=== PATIENT | female | born 1960 | race Caucasian/White ===

== ENCOUNTER → 2017-07-31 | Day surgery (SDC) | payer MEDICARE, MEDICAID ==
[~2017-07-31] MED LIST: Acetaminophen/HYDROcodone 325-5 MG Tab PO ONE; Dexamethasone 4 MG/ML SDV ONE; HYDROmorphone 0.5 MG/0.5 ML Syringe ONE; Ketorolac 30 MG/ML SDV ONE; Lactated Ringers 1,000 ML IV SCH; Lactated Ringers 1,000 ML ONE; Lidocaine 1% 4 ML ONE; Lidocaine 1%/Sod Bicarbonate in NS 8.4% 1 ML Syringe IDERM PRN; Meperidine PF 50 MG/ML Syringe IVPUSH PRN; Midazolam 1 MG/ML 2 ML SDV ONE; Ondansetron 4 MG/2 ML SDV IVPUSH PRN; Ondansetron 4 MG/2 ML SDV ONE; Propofol 200 MG/20 ML SDV ONE; Rocuronium 50 MG/5 ML Vial ONE; Sodium Chloride 0.9% 10 ML Syringe FLUSH PRN; ceFAZolin 1 GM Vial ONE; diphenhydrAMINE 50 MG/ML SDV IVPUSH PRN; fentaNYL 100 MCG/2 ML SDV IVPUSH PRN; fentaNYL 250 MCG/5 ML SDV ONE
--- NOTE | 2017-07-31 07:43 | PCM.PREANE ---
Preanesthetic Assessment - Anesthesia/Transfusion/Family Hx Anesthesia History: Prior Anesthesia Without Reaction Family History of Anesthesia Reaction: No Transfusion History: No Prior Transfusion(s) Intubation History: Unknown - Review of Systems General: Fatigue Pulmonary: No Symptoms (Former smoker: quit 2011, Asthma: last used inhaler daily/ERIKA with no CPAP used.) Cardiovascular: No Symptoms (History of HTN), Palpitations (occasionally) Gastrointestinal: No Symptoms (History of gastric bypass in 1998), Abdominal Pain, Decreased Appetite, Nausea (with dry heaves noted a few days ago.) Neurological: Headache, Numbness (bilateral hands while sleeping) Other: Reports: Easy Bruising, Diabetes (AM blood sugar: 99 AT 0500), Liver Problems (Spot on liver noted which doctor will continue to monitor), Sinus Problem (seasonal allergies/rhinitis) - Physical Assessment NPO Status Date: 07/30/17 NPO Status Time: 18:00 Pulse: 65 O2 Sat by Pulse Oximetry: 98 Respiratory Rate: 16 Blood Pressure: 160/56 Temperature: 36.9 C Height: 1.55 m Weight: 109 kg ASA Class: 3 Mental Status: Alert & Oriented x3 Airway Class: Mallampati = 3 Dentition: Reports: Dentures (upper and lower) Thyro-Mental Finger Breadths: 3 Mouth Opening Finger Breadths: 3 ROM/Head Extension: Full Lungs: Clear to Auscultation, Normal Respiratory Effort Cardiovascular: Regular Rate, Regular Rhythm, No Murmurs - Allergies Allergies/Adverse Reactions: Allergies Allergy/AdvReac Type Severity Reaction Status Date / Time codeine Allergy Rash Verified 07/30/17 15:25 - Anesthesia Plan Pre-Op Medication Ordered: None - Acknowledgements Anesthesia Type Planned: General Anesthesia Pt an Appropriate Candidate for the Planned Anesthesia: Yes Alternatives and Risks of Anesthesia Discussed w Pt/Guardian: Yes Pt/Guardian Understands and Agrees with Anesthesia Plan: Yes PreAnesthesia Questionnaire HEENT History: Reports: Impaired Vision, Other (See Below) Other HEENT History: wears glasses, dentures Cardiovascular History: Reports: High Cholesterol Respiratory History: Reports: Asthma, Sleep Apnea Gastrointestinal History: Reports: Other (See Below) Other Gastrointestinal History: liver lesion Genitourinary History: Reports: None POLITICAL CARTOONIST History: Reports: Other (See Below) Other OB/BYN History: abnormal pap Musculoskeletal History: Reports: None Neurological History: Reports: None Psychiatric History: Reports: Other (See Below) Other Psychiatric History: insomnia Endocrine/Metabolic History: Reports: Diabetes, Type II Hematologic History: Reports: None Immunologic History: Reports: None Oncologic (Cancer) History: Reports: None Dermatologic History: Reports: None - Past Surgical History Head Surgeries/Procedures: Reports: None Respiratory Surgical History: Reports: None GI Surgical History: Reports: Bariatric Procedure, Colonoscopy Female Surgical History: Reports: None Male Surgical History: Reports: None Endocrine Surgical History: Reports: None Neurological Surgical History: Reports: None Musculoskeletal Surgical History: Reports: None Oncologic Surgical History: Reports: None - SUBSTANCE USE Smoking Status *Q: Former Smoker Recreational Drug Use History: No - HOME MEDS Home Medications: Home Meds Albuterol [Ventolin HFA] 1 - 2 puff INH Q4H PRN 07/30/17 [History] Ascorbic Acid [Vitamin C] 500 mg PO DAILY 07/30/17 [History] Budesonide/Formoterol Fumarate [Symbicort 160-4.5 Mcg Inhaler] 2 puff INH BID [History] Calcium Carbonate [Calcium] 600 mg PO DAILY 07/30/17 [History] Cromolyn Sodium 1 drop EYEBOTH BID 07/30/17 [History] Cyanocobalamin (Vitamin B-12) [Vitamin B-12] 2,500 mcg PO DAILY 07/30/17 [ History] Cyclobenzaprine [Flexeril] 10 mg PO TID PRN 07/30/17 [History] Ferrous Gluconate [Iron] 0.5 tab PO DAILY 07/30/17 [History] Fluticasone Propionate [Flonase] 1 spray NASBOTH DAILY 07/30/17 [History] Furosemide [Lasix] 20 mg PO DAILY 07/30/17 [History] Garlic [Garlic Oil] 1,000 mg PO DAILY 07/30/17 [History] Loratadine [Claritin] 10 mg PO DAILY 07/30/17 [History] Montelukast [Singulair] 10 mg PO DAILY 07/30/17 [History] Multivitamin [Daily Bennie] 1 tab PO DAILY 07/30/17 [History] [place]-3/DHA/Epa/Fish Oil [Fish Oil 1,000 mg Softgel] 1 cap PO DAILY 07/30/17 [ History] Vitamin B Complex [B Complex] 1 tab PO DAILY 07/30/17 [History] Zolpidem Tartrate [Ambien] 5 mg PO BEDTIME 07/30/17 [History] atorvaSTATin [Lipitor] 20 mg PO BEDTIME 07/30/17 [History] sitaGLIPtin Phos/Metformin HCl [Janumet 50-1,000 MG] 1 tab PO BID 07/30/17 [ History] traZODone HCl [Trazodone HCl] 50 mg PO BEDTIME 07/30/17 [History] - CURRENT (IN HOUSE) MEDS Current Meds: Current Medications Lactated Ringer's (Ringers, Lactated) 1,000 mls @ 125 mls/hr IV ASDIRECTED [facility] Stop: 07/31/17 23:00 Lidocaine/Sodium Bicarbonate (Buffered Lidocaine 1% In Ns 8.4%) 0.25 ml IDERM ONETIME PRN PRN Reason: Prior to IV Start Stop: 07/31/17 18:00 Sodium Chloride (Saline Flush) 10 ml FLUSH ASDIRECTED PRN PRN Reason: Keep Vein Open Stop: 07/31/17 18:00 Discontinued Medications Lactated Ringer's (Ringers, Lactated) 1,000 mls @ 125 mls/hr IV ASDIRECTED [facility] Stop: 07/31/17 23:00 Lidocaine/Sodium Bicarbonate (Buffered Lidocaine 1% In Ns 8.4%) 0.25 ml IDERM ONETIME PRN PRN Reason: Prior to IV Start Stop: 07/31/17 18:00 Sodium Chloride (Saline Flush) 10 ml FLUSH ASDIRECTED PRN PRN Reason: Keep Vein Open Stop: 07/31/17 18:00
[2017-07-31] MEDS: Bupivacaine 0.5% 30 ML SDV ONE ×2 (09:59→10:12)
[2017-07-31] MEDS: Iopamidol 612 MG/ML 50 ML SDV ONE ×2 (10:13→11:00)
[2017-07-31] MEDS: Sodium Chloride 0.9% 50 ML SDV ONE ×2 (10:13→11:00)
--- NOTE | 2017-07-31 11:24 | PCM.OPNOTE ---
- General Post-Op/Procedure Note Date of Surgery/Procedure: 07/31/17 Operative Procedure(s): lap elias with IOC Pre Op Diagnosis: cholelithiasis Post-Op Diagnosis: Same Anesthesia Technique: General ET Tube Primary Surgeon: Deepak Abbott EBL in mLs: 2 Complications: None Condition: Good
--- NOTE | 2017-07-31 11:33 | PCM.POSTAN ---
POST ANESTHESIA ASSESSMENT - MENTAL STATUS Mental Status: Alert, Oriented - VITAL SIGNS Pulse Rate: 72 SaO2: 96 Resp Rate: 17 Blood Pressure: 132/44 Temperature: 36.8 C - RESPIRATORY Respiratory Status: Respiratory Rate WNL, Airway Patent, O2 Saturation Stable, Supplemental Oxygen - CARDIOVASCULAR CV Status: Pulse Rate WNL, Blood Pressure Stable - GASTROINTESTINAL GI Status: No Symptoms - PAIN Pain Score: 0 - POST OP HYDRATION Hydration Status: Adequate & Stable
--- NOTE | 2017-07-31 12:52 | CR ---
Operative cholangiogram Technique: Four fluoroscopic spot views were obtained during operative cholangiogram study. Comparison: No previous study. Very distal aspect of the CBD is not well seen but no indirect evidence to suggest obstruction is seen. Other portions the CHD and CBD as well as intrahepatic ducts show no dilatation. Impression: 1. Distal CBD not well seen. No indirect evidence of CBD obstruction, please correlate with fluoroscopic findings. 2. Other portions of the cholangiogram study are unremarkable. Diagnostic code #2
--- NOTE | 2017-08-01 06:50 | OR ---
DATE OF OPERATION: 07/31/2017 SURGEON: Deepak Abbott MD PREOPERATIVE DIAGNOSIS: Cholelithiasis. POSTOPERATIVE DIAGNOSIS: Cholelithiasis. OPERATION PERFORMED: 1. Laparoscopic cholecystectomy. 2. Intraoperative cholangiogram. FINDINGS: Adhesions of the omentum over the fundus of the gallbladder. The cholangiogram showed dilated ducts with a trickle of dye into the partial emptying of the duct into the duodenum. The gallbladder had a small little gravel like sludge. ANESTHESIA: Procedure done under general anesthetic. ESTIMATED BLOOD LOSS: 2 mL. DESCRIPTION OF PROCEDURE: The patient was taken to the operating room, placed in a supine position, connected to monitoring equipment, given a general anesthetic and intubated. SCDs were placed. Antibiotics were given and the abdomen was prepped with chlorhexidine and alcohol prep, draped off in a sterile fashion. Incision was made above the umbilicus and using the extended 5-mm trocar, the abdominal cavity was entered using an Opti port technique. Pneumoperitoneum was established and a 5-mm 0-degree camera was then inserted. Abdominal cavity was scanned/the liver did not show any unusual masses. Gallbladder was shown in the right upper quadrant with adhesions over the fundus. A 10-mm trocar was placed in the right upper quadrant, one in the right mid quadrant, and one in the right lateral quadrant just along the rib edge. The patient was placed in reverse Trendelenburg with a leftward tilt. The adhesions were taken down with electrocautery. The fundus of the gallbladder was then retracted and the Peg pouch was then identified after the adhesions were taken out and that was retracted in the opposite direction of the fundus that is in the caudal projection. Calot's triangle was then dissected out so a cystic artery ramifying onto the duct and cystic duct Peg pouch junction. A clip was placed in the cystic duct Peg pouch junction and 2 clips, one distal and proximal cystic artery and the cystic duct was opened. New gravel was milked out and a cholangiocatheter was inserted and contrast material diluted with equal parts of saline and the C-arm was used and the above noted was found. The clip was placed on the cystic duct. Cystic duct was cut and then a 0 PDS Endoloop was placed below this clip. The cystic artery was cut and the gallbladder was then dissected from its attachments to the liver and placed in an Endobag and removed from the abdominal cavity. A pneumoperitoneum was re- established. The area was checked and excellent hemostasis noted. This completed the intraabdominal portion of the procedure. The pneumoperitoneum was removed. Gallbladder was sent to pathology in a labeled container and the skin of each port closed with subdermal 4-0 Dexon suture. Steri-Strips and sterile dressing were placed and 0.5% Marcaine infiltrated in the area. The patient tolerated the procedure and sent to recovery room in a stable condition. MMODAL /[id number]
== END | disposition home or self-care (01) ==
LOC: JD.SDS 07:19
PROVIDERS: ATTEND Surgery
DX: K81.1 Chronic cholecystitis (principal); K82.8 Other specified diseases of gallbladder; I10 Essential (primary) hypertension; E11.9 Type 2 diabetes mellitus without complications; J45.909 Unspecified asthma, uncomplicated; E78.00 Pure hypercholesterolemia, unspecified; G47.30 Sleep apnea, unspecified; Z87.891 Personal history of nicotine dependence; Z79.51 Long term (current) use of inhaled steroids; Z79.84 Long term (current) use of oral hypoglycemic drugs; Z79.899 Other long term (current) drug therapy; Z88.5 Allergy status to narcotic agent
CPT/HCPCS: 36415; 47563; 74300; 80048; 93005; J0690; J1100; J1170; J1885; J2001; J2250; J2405; J3010; J7120; Q9967; 00790; 88304; J2704

== ENCOUNTER 2017-08-01 17:55 | Inpatient (IN) | payer MEDICARE, MEDICAID ==
[2017-08-01] MEDS ORDERED: Dextrose 5%-0.9% NaCl 1,000 ML IV SCH ×2 (18:00→18:45)
[2017-08-01] MEDS ORDERED: HYDROmorphone 0.5 MG/0.5 ML SYRINGE IVPUSH ONE (18:31)
[2017-08-01] MEDS ORDERED: Metoclopramide 10 MG/2 ML SDV IVPUSH ONE (18:31)
--- NOTE | 2017-08-01 18:37 | EDM.PDOC ---
ED HPI GENERAL MEDICAL PROBLEM - General Chief Complaint: Abdominal Pain Stated Complaint: FABIO SENT HER Time Seen by Provider: 08/01/17 18:22 Source of Information: Reports: Patient, Family (spouse) History Limitations: Reports: Other (Very tearful and apprehensive.) - History of Present Illness INITIAL COMMENTS - FREE TEXT/NARRATIVE: 57-year-old female presents to the ED with diffuse abdominal pain after having laparoscopic cholecystectomy performed yesterday in our hospital by Dr. Abbott. She is nauseated did have emesis once. She has had very little to eat or drink today. No bowel movement. She feels bloated and distended. It does hurt worse to take a deep breath particularly in her right upper quadrant of her abdomen and shoulder area. This would suggest air between the liver and the diaphragm. Hurts to move cough or breathes deeply. A very chills. On cholangiogram done yesterday intraoperatively it appeared that there was a dilatation of the common bile duct up to 1.5 cm with stenosis at the distal end of the duct suggesting partial occlusion. No definitive stone was identified or filling defect. Concern for possible occlusion of the duct by small stone or sludge evident. Onset: Gradual Onset Date: 07/31/17 (Had laparoscopic cholecystectomy done yesterday.) Duration: Hour(s): Location: Reports: Abdomen (Diffuse abdominal pain worse right upper quadrant.) Quality: Reports: Ache, Other Severity: Severe (2 pain is 8 or 9 out of 10.) Improves with: Reports: None Worsens with: Reports: Other, Movement Context: Reports: Other (Postop laparoscopic cholecystectomy done yesterday.). Denies: Activity (A breathing or coughing), Exercise, Lifting, Sick Contact, Trauma Associated Symptoms: Reports: Loss of Appetite, Malaise, Nausea/Vomiting, Shortness of Breath. Denies: Confusion, Chest Pain, Cough, cough w sputum, Diaphoresis, Fever/Chills, Headaches, Rash (Nausea with intermittent vomiting 1.), Seizure, Syncope Treatments DIRECTOR RECREATION: Reports: Other (see below) (None.) Abdomen Pain Score (Numeric/FACES): 9 - Related Data Allergies Allergy/AdvReac Type Severity Reaction Status Date / Time codeine Allergy Rash Verified 08/01/17 18:13 Home Meds: Home Meds Albuterol [Ventolin HFA] 1 - 2 puff INH Q4H PRN 05/21/18 [History] Ascorbic Acid [Vitamin C] 500 mg PO DAILY 07/30/17 [History] Budesonide/Formoterol Fumarate [Symbicort 160-4.5 Mcg Inhaler] 2 puff INH BID [History] Calcium Carbonate [Calcium] 600 mg PO DAILY 07/30/17 [History] Cromolyn Sodium 1 drop EYEBOTH BID 07/30/17 [History] Cyanocobalamin (Vitamin B-12) [Vitamin B-12] 2,500 mcg PO DAILY 07/30/17 [ History] Cyclobenzaprine [Flexeril] 10 mg PO TID PRN 07/30/17 [History] Ferrous Gluconate [Iron] 0.5 tab PO DAILY 07/30/17 [History] Fluticasone Propionate [Flonase] 1 spray NASBOTH DAILY 07/30/17 [History] Furosemide [Lasix] 20 mg PO DAILY 07/30/17 [History] Garlic [Garlic Oil] 1,000 mg PO DAILY 07/30/17 [History] Loratadine [Claritin] 10 mg PO DAILY 07/30/17 [History] Montelukast [Singulair] 10 mg PO DAILY 07/30/17 [History] Multivitamin [Daily Bennie] 1 tab PO DAILY 07/30/17 [History] [place]-3/DHA/Epa/Fish Oil [Fish Oil 1,000 mg Softgel] 1 cap PO DAILY 07/30/17 [ History] Vitamin B Complex [B Complex] 1 tab PO DAILY 07/30/17 [History] Zolpidem Tartrate [Ambien] 5 mg PO BEDTIME 07/30/17 [History] atorvaSTATin [Lipitor] 20 mg PO BEDTIME 07/30/17 [History] sitaGLIPtin Phos/Metformin HCl [Janumet 50-1,000 MG] 1 tab PO BID 07/30/17 [ History] traZODone HCl [Trazodone HCl] 50 mg PO BEDTIME 07/30/17 [History] Past Medical History HEENT History: Reports: Impaired Vision, Other (See Below) Other HEENT History: wears glasses, dentures Cardiovascular History: Reports: High Cholesterol Respiratory History: Reports: Asthma, Sleep Apnea Gastrointestinal History: Reports: Other (See Below) Other Gastrointestinal History: liver lesion Genitourinary History: Reports: None WAISTBAND SETTER History: Reports: Other (See Below) Other OB/BYN History: abnormal pap Musculoskeletal History: Reports: None Neurological History: Reports: None Psychiatric History: Reports: Other (See Below) Other Psychiatric History: insomnia Endocrine/Metabolic History: Reports: Diabetes, Type II Hematologic History: Reports: None Immunologic History: Reports: None Oncologic (Cancer) History: Reports: None Dermatologic History: Reports: None - Past Surgical History Head Surgeries/Procedures: Reports: None Respiratory Surgical History: Reports: None GI Surgical History: Reports: Bariatric Procedure, Colonoscopy, Other (See Below ) Other GI Surgeries/Procedures: bladder surgery Female Surgical History: Reports: None Endocrine Surgical History: Reports: None Neurological Surgical History: Reports: None Musculoskeletal Surgical History: Reports: None Oncologic Surgical History: Reports: None Social & Family History - Tobacco Use Smoking Status *Q: Former Smoker Used Tobacco, but Quit: Yes Month/Year Tobacco Last Used: 2011 - Caffeine Use Caffeine Use: Reports: Coffee - Recreational Drug Use Recreational Drug Use: No - Living Situation & Occupation Living situation: Reports: Single Occupation: Unemployed ED ROS GENERAL - Review of Systems Review Of Systems: See Below Constitutional: Reports: Malaise, Weakness, Fatigue, Decreased Appetite (From not sleeping last night). Denies: Fever, Chills HEENT: Reports: No Symptoms Respiratory: Reports: Shortness of Breath (Can take a deep breath it makes the abdominal pain much worse.) Cardiovascular: Reports: No Symptoms Endocrine: Reports: No Symptoms GI/Abdominal: Reports: Abdominal Pain (She is to present illness), Decreased Appetite (Unable to eat at all), Flatus (He is passing small amounts of flatus.) : Reports: No Symptoms Musculoskeletal: Reports: No Symptoms Skin: Reports: No Symptoms Neurological: Reports: No Symptoms ED EXAM, GI/ABD - Physical Exam Exam: See Below Exam Limited By: No Limitations General Appearance: Moderate Distress (Tearful and obviously in significant pain.) Eyes: Bilateral: Normal Appearance (No jaundice.) Throat/Mouth: Other (Tongue is dry and coated.) Head: Atraumatic, Normocephalic Neck: Normal Inspection, Supple, Non-Tender. No: Lymphadenopathy (L), Lymphadenopathy (R) Respiratory/Chest: Lungs Clear, Normal Breath Sounds, Respiratory Distress ( Mildly tachypneic at 20/m. Breathing is fairly shallow.), Decreased Breath Sounds (The case. Air entry to the lower 20% of lung milan.) Cardiovascular: No Edema, No JVD, No Murmur, No Rub, Irregularly Irregular ( Heart rate is irregularly irregular at 140-1 50/m compatible with atrial fibrillation. Patient is not on the monitor at present. She will be shortly) GI/Abdominal Exam: Normal Bowel Sounds, Distended, Tender (Patient has diffuse abdominal tenderness particularly across the lower abdomen right lower quadrant right upper quadrant. She is slightly distended and diffusely tympanitic to percussion.), Other (Surgical right upper quadrant of the abdomen looks good.) Back Exam: Normal Inspection, CVA Tenderness (R) (Mild.). No: CVA Tenderness (L ) Extremities: Normal Inspection, Normal Range of Motion, No Pedal Edema Neurological: Alert, Oriented, CN II-XII Intact, Normal Cognition Psychiatric: Anxious, Tearful Skin Exam: Warm, Intact, Normal Color, No Rash, Other (No jaundice.) EKG INTERPRETATION EKG Date: 08/01/17 Time: 18:53 Rhythm: A-Fib (With a rate of 86-1 50/m) Rate (Beats/Min): 112 [place]: LAD-Left [place] Deviation (Borderline left axis deviation at 1.) P-Wave: Absent QRS: Other (There is early R-wave transition in V2 suggestive of right ventricular hypertrophy pattern. Patient needs echocardiogram to rule out pulmonary hypertension. There is also evidence of left ventricular hypertrophy pattern with repolarization abnormality.) ST-T: Normal QT: Normal EKG Interpretation Comments: Abnormal ECG Course - Vital Signs Last Recorded V/S: Last Vital Signs Temp 37.2 C 08/01/17 18:07 Pulse 112 H 08/01/17 18:07 Resp 18 08/01/17 18:07 BP 147/86 H 08/01/17 18:07 Pulse Ox 98 08/01/17 18:07 - Orders/Labs/Meds Orders: Active Orders 24 hr Category Date Time Status EKG Documentation Completion [RC] STAT Care 08/01/17 18:30 Active Chest 1V Frontal [CR] Stat Exams 08/01/17 18:30 Taken Dextrose 5%-0.9% NaCl [Dextrose 5%-Normal Saline] 1,000 Med 08/01/17 18:45 Active ml IV ASDIRECTED Diltiazem 125 mg Med 08/01/17 19:15 Active Sodium Chloride 0.9% [Normal Saline] 100 ml IV ASDIRECTED Diltiazem 125 mg Med 08/01/17 19:45 Active Sodium Chloride 0.9% [Normal Saline] 100 ml IV ASDIRECTED Sodium Chloride 0.9% [Saline Flush] Med 08/01/17 18:41 Active 10 ml FLUSH ONETIME PRN Medication Orders Dextrose/Sodium Chloride (Dextrose 5%-Normal Saline) 1,000 mls @ 500 mls/hr IV ASDIRECTED ABRAN Diltiazem HCl 125 mg/ Sodium (Chloride) 125 mls @ 10 mls/hr IV ASDIRECTED ABRAN Diltiazem HCl 125 mg/ Sodium (Chloride) 125 mls @ 5 mls/hr IV ASDIRECTED ABRAN Last Admin: 08/01/17 19:57 Dose: 5 mg/hr, 5 mls/hr Sodium Chloride (Saline Flush) 10 ml FLUSH ONETIME PRN PRN Reason: IV FLUSH Last Admin: 08/01/17 19:05 Dose: 10 ml Labs: Laboratory Tests 08/01/17 08/01/17 08/01/17 Range/Units 18:20 18:20 18:20 WBC 17.46 H (3.98-10.04) K/mm3 RBC 4.28 (3.98-5.22) M/mm3 Hgb 12.0 (11.2-15.7) gm/L Hct 37.2 (34.1-44.9) % MCV 86.9 (79.4-94.8) fl MCH 28.0 (25.6-32.2) pg MCHC 32.3 (32.2-35.5) g/dl RDW Std Deviation 44.3 (36.4-46.3) fL Plt Count 275 (182-369) K/mm3 MPV 9.8 (9.4-12.3) fl Neutrophils % (Manual) 90 H (40-60) % Band Neutrophils % 0 (0-10) % Lymphocytes % (Manual) 8 L (20-40) % Atypical Lymphs % 0 % Monocytes % (Manual) 2 (2-10) % Eosinophils % (Manual) 0 L (0.7-5.8) % Basophils % (Manual) 0 L (0.1-1.2) Platelet Estimate Adequate Plt Morphology Comment Normal Poikilocytosis 1+ slight Anisocytosis 1+ slight Microcytosis 1+ slight Macrocytosis 1+ slight Tear Drop Cells 1+ slight Ovalocytes 1+ slight RBC Morph Comment Abn Sodium 137 (136-145) mEq/L Potassium 4.2 (3.5-5.1) mEq/L Chloride 101 (98-107) mEq/L Carbon Dioxide 28 (21-32) mEq/L Anion Gap 12.2 (5-15) BUN 18 (7-18) mg/dL Creatinine 1.0 (0.55-1.02) mg/dL Est Cr Clr Drug Dosing 47.40 mL/min Estimated GFR (MDRD) 57 (>60) mL/min BUN/Creatinine Ratio 18.0 (14-18) Glucose 156 H (74-106) mg/dL Calcium 9.4 (8.5-10.1) mg/dL Magnesium 1.8 (1.8-2.4) mg/dl Total Bilirubin 0.8 (0.2-1.0) mg/dL GGT 166 H (5-55) U/L AST 137 H (15-37) U/L ALT 169 H (14-59) U/L Alkaline Phosphatase 135 H (46-116) U/L CK-MB (CK-2) 5.7 H (0-3.6) ng/ml Troponin I < 0.017 (0.00-0.056) ng/mL NT-Pro-B Natriuret Pep (0-125) pg/mL Total Protein 7.2 (6.4-8.2) g/dl Albumin 3.8 (3.4-5.0) g/dl Globulin 3.4 gm/dL Albumin/Globulin Ratio 1.1 (1-2) Lipase 89 (73-393) U/L 08/01/17 Range/Units 18:20 WBC (3.98-10.04) K/mm3 RBC (3.98-5.22) M/mm3 Hgb (11.2-15.7) gm/L Hct (34.1-44.9) % MCV (79.4-94.8) fl MCH (25.6-32.2) pg MCHC (32.2-35.5) g/dl RDW Std Deviation (36.4-46.3) fL Plt Count (182-369) K/mm3 MPV (9.4-12.3) fl Neutrophils % (Manual) (40-60) % Band Neutrophils % (0-10) % Lymphocytes % (Manual) (20-40) % Atypical Lymphs % % Monocytes % (Manual) (2-10) % Eosinophils % (Manual) (0.7-5.8) % Basophils % (Manual) (0.1-1.2) Platelet Estimate Plt Morphology Comment Poikilocytosis Anisocytosis Microcytosis Macrocytosis Tear Drop Cells Ovalocytes RBC Morph Comment Sodium (136-145) mEq/L Potassium (3.5-5.1) mEq/L Chloride (98-107) mEq/L Carbon Dioxide (21-32) mEq/L Anion Gap (5-15) BUN (7-18) mg/dL Creatinine (0.55-1.02) mg/dL Est Cr Clr Drug Dosing mL/min Estimated GFR (MDRD) (>60) mL/min BUN/Creatinine Ratio (14-18) Glucose (74-106) mg/dL Calcium (8.5-10.1) mg/dL Magnesium (1.8-2.4) mg/dl Total Bilirubin (0.2-1.0) mg/dL GGT (5-55) U/L AST (15-37) U/L ALT (14-59) U/L Alkaline Phosphatase (46-116) U/L CK-MB (CK-2) (0-3.6) ng/ml Troponin I (0.00-0.056) ng/mL NT-Pro-B Natriuret Pep 201 H (0-125) pg/mL Total Protein (6.4-8.2) g/dl Albumin (3.4-5.0) g/dl Globulin gm/dL Albumin/Globulin Ratio (1-2) Lipase (73-393) U/L Meds: Medications Generic Name Dose Route Start Last Admin Trade Name Freq PRN Reason Stop Dose Admin Dextrose/Sodium Chloride 1,000 mls @ 500 mls/hr 08/01/17 18:45 Dextrose 5%-Normal Saline IV ASDIRECTED ABRAN Diltiazem HCl 125 mg/ Sodium 125 mls @ 10 mls/hr 08/01/17 19:15 Chloride IV ASDIRECTED ABRAN 10 MG/HR Diltiazem HCl 125 mg/ Sodium 125 mls @ 5 mls/hr 08/01/17 19:45 08/01/17 19:57 Chloride IV 5 mg/hr ASDIRECTED ABRAN 5 mls/hr Administration 5 MG/HR Sodium Chloride 10 ml 08/01/17 18:41 08/01/17 19:05 Saline Flush FLUSH 10 ml ONETIME PRN Administration IV FLUSH Discontinued Medications Generic Name Dose Route Start Last Admin Trade Name Freq PRN Reason Stop Dose Admin Diltiazem HCl 10 mg 08/01/17 19:04 08/01/17 19:20 Diltiazem IVPUSH 08/01/17 19:05 10 mg ONETIME ONE Administration Hydromorphone HCl 1 mg 08/01/17 18:31 08/01/17 18:38 Dilaudid IVPUSH 08/01/17 18:32 1 mg ONETIME ONE Administration Dextrose/Sodium Chloride 1,000 mls @ 150 mls/hr 08/01/17 18:00 08/01/17 18:37 Dextrose 5%-Normal Saline IV 150 mls/hr ASDIRECTED ABRAN Administration Cefotaxime Sodium 2 gm/ Sodium 50 mls @ 100 mls/hr 08/01/17 19:37 Chloride IV 08/01/17 20:06 ONETIME ONE Iopamidol 150 ml 08/01/17 18:41 08/01/17 19:05 Isovue-300 (61%) IVPUSH 08/01/17 18:42 125 ml ONETIME ONE Administration Metoclopramide HCl 7.5 mg 08/01/17 18:31 08/01/17 18:37 Reglan IVPUSH 08/01/17 18:32 7.5 mg ONETIME ONE Administration - Radiology Interpretation Free Text/Narrative:: 57-year-old female arrives in the ED with with her significant other. She had a laparoscopic cholecystectomy done yesterday in our hospital by Dr. Abbott. She presents to the ED tonight due to diffuse severe abdominal pain. Dr. Abbott did an intraoperative cholangiogram which suggested that she did have a dilated common bile duct with a narrowing at the distal end of the duct suspicious for stone retention or sludge. No definitive filling defect was identified. Duct appear to be dilated up to 1.5 cm. Therefore the concern is whether pain is due to stone or sludge within the common bile duct or postoperative in origin. Plan IV normal saline at 500 mils per hour. Dilaudid 1 mg IV with Reglan 7.5 mg IV as most narcotics make her nauseated. Routine lab work including a serum lipase and a GGT. ET of the abdomen and pelvis will be done with IV contrast only. Dr. Abbott wishes to be called once the test results are available. - Re-Assessments/Exams Free Text/Narrative Re-Assessment/Exam: 08/01/17 19:06 chest x-ray done portably shows a very poor inspirational view. This compresses the vasculature making look like she has diffuse vascular congestion. There is a slight haziness of the right hemidiaphragm suggesting possible early pleural effusion. ECG done confirms clinical suspicion of atrial fibrillation with a rate of 86-1 50/m. There are no signs of ischemic changes. She also has signs of a right ventricular hypertrophy with a left ventricular hypertrophy with repolarization abnormality as well. Patient needs an echocardiogram to sort out whether she has significant pulmonary hypertension. Will be started on Cardizem drip 10 mg IV bolus then 10 mg per hour to bring her rate under control. Be transferred to Dr. Sourav Arauz at change of shift. She is still awaiting her lab work and CT abdomen and pelvis with IV contrast. 08/01/17 19:25 Labs reveal an elevated white count at 17.46 with a left shift of 90% neutrophils and no bands. Hemoglobin is 12.0 with hematocrit of 37.2..Platelet count is normal at 275,000.. Sodium is 137 with a potassium of 4.2. Toward 101 with a bicarbonate 28. And a gap is normal at 12.2. BUN is 18 with a creatinine of 1.0. EGFR is 57. Glucose slightly elevated 156. Calcium normal at 9.4. Magnesium low normal at 1.8. Total bilirubin is 0.8 GGT is mildly elevated at 166 AST is mildly elevated 137 ALT is mildly elevated 169 alkaline phosphatase is mildly elevated 135. CK-MB fraction is elevated at 5.749 is less than 0.017. BNP is 201. Lipase normal at 89. Awaiting CT report. There is slight atelectasis noted within both lung bases. Liver shows no focal parenchymal abnormality or dilatation of any of the ducts. Spleen shows multiple calcified granulomas. This of previous stomach surgery is appreciated. On my assessment there is increased air in slight amount of stool throughout the colon. There is evidence of recent cholecystectomy. Common bile duct is dilated does come to a tapered distal and without any signs of obstruction. Increase is mildly atrophic. Kidneys and drainage tubes or ureters are normal. Adrenal glands appear normal. Bladder fills adequately. Heart rate is down to 92 /m remains in atrial fibrillation. BP is 127/95. 08/01/17 19:32 CT report is now available. There is a small low density finding within the right kidney which appears to contain fat and likely represents a minimal and she'll mild lipoma. Aorta shows no aneurysmal dilatation wrote no retroperitoneal adenopathy is seen. No pelvic mass or adenopathy is noted. Soft tissue air is seen within the anterior abdominal wall fat presumably from previous surgery no free fluid is appreciated no significant bowel dilatation is appreciated bone window setting show scattered degenerative changes throughout the spine was within the thoracic spine with evidence of a compression fracture of thoracic 11 vertebra. Case discussed with Dr. Hdz was already seen her once in the ED and he will revisit her in the morning. He suggests a dose of cefotaxime antibiotic for now since she has an elevated white count and wants to make sure she is not developing any form of sepsis or infection or common bile duct. 08/01/17 19:42 heart rate is down in the 90s and this is only after the Cardizem 10 mg IV bolus. She is to be started on Cardizem drip at 10 but I changed it to 5 mg per hour at this time since right is so well controlled after the bolus. 08/01/17 20:13 spoke with occupational therapist assistant hospitalist Dr. Flores and he will accept the patient. She will be admitted to the ICU as she is on Cardizem drip. Current rate is 1 10/m with BP of 122/73. Departure - Departure Time of Disposition: 20:08 Disposition: Admitted As Inpatient 67 Condition: Fair Clinical Impression: Postoperative abdominal pain, New onset atrial fibrillation - Discharge Information Referrals: Eva Morrison, DISTRICT DIRECTOR [Primary Care Provider] - Forms: ED Department Discharge - My Orders Last 24 Hours: My Active Orders 08/01/17 18:30 EKG Documentation Completion [RC] STAT Chest 1V Frontal [CR] Stat 08/01/17 18:41 Sodium Chloride 0.9% [Saline Flush] 10 ml FLUSH ONETIME PRN 08/01/17 18:45 Dextrose 5%-0.9% NaCl [Dextrose 5%-Normal Saline] 1,000 ml IV ASDIRECTED 08/01/17 19:15 Diltiazem 125 mg Sodium Chloride 0.9% [Normal Saline] 100 ml IV ASDIRECTED 08/01/17 19:45 Diltiazem 125 mg Sodium Chloride 0.9% [Normal Saline] 100 ml IV ASDIRECTED - Assessment/Plan Last 24 Hours: My Active Orders 08/01/17 18:30 EKG Documentation Completion [RC] STAT Chest 1V Frontal [CR] Stat 08/01/17 18:41 Sodium Chloride 0.9% [Saline Flush] 10 ml FLUSH ONETIME PRN 08/01/17 18:45 Dextrose 5%-0.9% NaCl [Dextrose 5%-Normal Saline] 1,000 ml IV ASDIRECTED 08/01/17 19:15 Diltiazem 125 mg Sodium Chloride 0.9% [Normal Saline] 100 ml IV ASDIRECTED 08/01/17 19:45 Diltiazem 125 mg Sodium Chloride 0.9% [Normal Saline] 100 ml IV ASDIRECTED
[2017-08-01] MEDS ORDERED: Sodium Chloride 0.9% 10 ML Syringe FLUSH PRN ×2 (18:41→21:19)
[2017-08-01] MEDS ORDERED: Iopamidol 612 MG/ML 150 ML Bottle IVPUSH ONE (18:41)
[2017-08-01] MEDS ORDERED: Diltiazem 25 MG/5 ML SDV IVPUSH ONE (19:04)
[2017-08-01] MEDS ORDERED: Diltiazem 125 MG in Sodium Chloride 0.9% 100 ML IV SCH ×2 (19:15→19:45)
--- NOTE | 2017-08-01 19:30 | CT ---
CT abdomen and pelvis Technique: Multiple axial sections were obtained from above the dome of the diaphragm inferiorly through the pubic symphysis. Intravenous contrast was utilized. No oral contrast has been given. Delayed images were also obtained through the abdomen and pelvis. Comparison: No previous CT abdomen or pelvis study. Findings: Slight atelectasis is noted within both lung bases. Liver shows no focal parenchymal abnormality. Spleen shows multiple calcified granulomas. Prior stomach surgery is seen. Surgical clips are seen from prior cholecystectomy. Slight increased density within the gallbladder bed is seen presumably due to prior surgery. Adrenal glands show no nodule. 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 Delayed images shows contrast within the ureters and within the bladder. Pancreas is within normal limits. Aorta shows no aneurysmal dilatation. No retroperitoneal adenopathy is seen. No pelvic mass or adenopathy is noted. Soft tissue air is seen within the anterior abdominal wall fat presumably from previous surgery. No free fluid is seen. No significant bowel dilatation is seen. Bone window settings show scattered degenerative change throughout the spine, worse within the thoracic spine. Bladder is slightly distended. Impression: 1. Slight increased density within the gallbladder bed which is felt to relate to previous surgery. Subcutaneous air is seen within the abdominal wall fat also felt to be postsurgical. 2. Slightly distended bladder, please confirm that patient does not have any urinary retention. 3. Other incidental findings as noted above. Nothing acute is seen. Diagnostic code #2
[2017-08-01] MEDS ORDERED: Cefotaxime 2 GM in Sodium Chloride 0.9% 50 ML IV ONE (19:37)
[2017-08-01] MEDS ORDERED: hydrALAZINE 20 MG/ML SDV IVPUSH PRN (21:16)
[2017-08-01] MEDS ORDERED: LORazepam 2 MG/ML SDV IVPUSH PRN (21:16)
[2017-08-01] MEDS ORDERED: Metoprolol Tartrate 5 MG/5 ML SDV IVPUSH PRN (21:16)
[2017-08-01] MEDS ORDERED: Cyclobenzaprine 10 MG Tab PO PRN (21:17)
[2017-08-01] MEDS ORDERED: Albuterol 6.7 GM Inhaler INH PRN (21:17)
[2017-08-01] MEDS ORDERED: Docusate Sodium 100 MG Cap PO PRN (21:19)
[2017-08-01] MEDS ORDERED: LORazepam 2 MG/ML SDV IV PRN (21:19)
[2017-08-01] MEDS ORDERED: Acetaminophen 325 MG Tab PO PRN (21:19)
[2017-08-01] MEDS ORDERED: Bisacodyl 5 MG Tab PO PRN (21:19)
[2017-08-01] MEDS ORDERED: Ondansetron 4 MG/2 ML SDV IV PRN (21:19)
[2017-08-01] MEDS ORDERED: HYDROmorphone 0.5 MG/0.5 ML SYRINGE IVPUSH PRN (21:19)
[2017-08-01] MEDS ORDERED: Promethazine 12.5 MG in Sodium Chloride 0.9% 50 ML IV PRN (21:19)
[2017-08-01] MEDS ORDERED: Polyethylene Glycol 3350 Powder 17 GM Packet PO PRN (21:19)
--- NOTE | 2017-08-01 21:25 | PCM.HP ---
H&P History of Present Illness - General Date of Service: 08/01/17 Admit Problem/Dx: Admission Diagnosis/Problem Admission Diagnosis/Problem Atrial fibrillation with rapid ventricular response Source of Information: Patient, Old Records, Provider, RN Notes Reviewed History Limitations: Reports: No Limitations - History of Present Illness Initial Comments - Free Text/Narative: This is a 57 yo white female with past medical hx/o impaired vision, hyperlipidemia, asthma, type 2 diabetes, and insomnia, presented to emergency department w/ abdominal pain after undergoing laparoscopic cholecystectomy POD # 1 and was found with irregular and fast heart rate in the 150s. She received 10 mg Cardizem IV bolus and was immediately put on Cardizem drip before she was sent to the unit for further management. Her initial workup in the emergency department shows CBC remarkable for WBC of 17.46, neutrophils of 90%,and lymphocytes of 8%. Her chemistry is remarkable for glucose of 156, GGT of 166, AST of 137, Alkaline phosphatase of 135, CKMB of 5.7 and, pro-BNP of 201. Chest x-ray shows slight left basilar atelectasis. Her abdominal/pelvis CT scan report reads slight increased density within the gallbladder bed which is felt to be related to previous surgery. Subcutaneous air is seen within the abdominal wall fat also found to be postsurgical. Slightly distended bladder. Nothing acute is seen. Patient is being admitted for medical management of atrial fibrillation with RVR. She is full code. Abdomen Pain Score (Numeric/FACES): 9 - Related Data Allergies/Adverse Reactions: Allergies Allergy/AdvReac Type Severity Reaction Status Date / Time codeine Allergy Rash Verified 08/01/17 18:13 Home Medications: Home Meds Albuterol [Ventolin HFA] 1 - 2 puff INH Q4H PRN 07/30/17 [History] Ascorbic Acid [Vitamin C] 500 mg PO DAILY 07/30/17 [History] Budesonide/Formoterol Fumarate [Symbicort 160-4.5 Mcg Inhaler] 2 puff INH BID [History] Calcium Carbonate [Calcium] 600 mg PO DAILY 07/30/17 [History] Cromolyn Sodium 1 drop EYEBOTH BID 07/30/17 [History] Cyanocobalamin (Vitamin B-12) [Vitamin B-12] 2,500 mcg PO DAILY 07/30/17 [ History] Cyclobenzaprine [Flexeril] 10 mg PO TID PRN 07/30/17 [History] Fluticasone Propionate [Flonase] 1 spray NASBOTH DAILY 07/30/17 [History] Furosemide [Lasix] 20 mg PO DAILY 07/30/17 [History] Garlic [Garlic Oil] 1,000 mg PO DAILY 07/30/17 [History] Loratadine [Claritin] 10 mg PO DAILY 07/30/17 [History] Montelukast [Singulair] 10 mg PO DAILY 07/30/17 [History] Multivitamin [Daily Bennie] 1 tab PO DAILY 07/30/17 [History] [place]-3/DHA/Epa/Fish Oil [Fish Oil 1,000 mg Softgel] 1 cap PO DAILY 07/30/17 [ History] Vitamin B Complex [B Complex] 1 tab PO DAILY 07/30/17 [History] Zolpidem Tartrate [Ambien] 5 mg PO BEDTIME 07/30/17 [History] atorvaSTATin [Lipitor] 20 mg PO BEDTIME 07/30/17 [History] sitaGLIPtin Phos/Metformin HCl [Janumet 50-1,000 MG] 1 tab PO BID 07/30/17 [ History] traZODone HCl [Trazodone HCl] 50 mg PO BEDTIME 07/30/17 [History] Ferrous Sulfate 162.5 mg PO DAILY 08/02/17 [History] Rivaroxaban [Xarelto] 20 mg PO ASDIRECTED #30 tablet 08/02/17 [Rx] Past Medical History HEENT History: Reports: Impaired Vision, Other (See Below) Other HEENT History: wears glasses, dentures Cardiovascular History: Reports: High Cholesterol Respiratory History: Reports: Asthma, Sleep Apnea Gastrointestinal History: Reports: Other (See Below) Other Gastrointestinal History: liver lesion Genitourinary History: Reports: None AUT[employer]EMMER History: Reports: Other (See Below) Other OB/BYN History: abnormal pap Musculoskeletal History: Reports: None Neurological History: Reports: None Psychiatric History: Reports: Other (See Below) Other Psychiatric History: insomnia Endocrine/Metabolic History: Reports: Diabetes, Type II Hematologic History: Reports: None Immunologic History: Reports: None Oncologic (Cancer) History: Reports: None Dermatologic History: Reports: None - Past Surgical History Head Surgeries/Procedures: Reports: None Respiratory Surgical History: Reports: None GI Surgical History: Reports: Bariatric Procedure, Colonoscopy, Other (See Below ) Other GI Surgeries/Procedures: bladder surgery Female Surgical History: Reports: None Endocrine Surgical History: Reports: None Neurological Surgical History: Reports: None Musculoskeletal Surgical History: Reports: None Oncologic Surgical History: Reports: None Social & Family History - Tobacco Use Smoking Status *Q: Former Smoker Used Tobacco, but Quit: Yes Month/Year Tobacco Last Used: 2011 - Caffeine Use Caffeine Use: Reports: Coffee - Recreational Drug Use Recreational Drug Use: No - Living Situation & Occupation Living situation: Reports: Single Occupation: Unemployed H&P Review of Systems - Review of Systems: Review Of Systems: See Below General: Reports: Malaise, Weakness, Fatigue. Denies: Fever, Chills HEENT: Reports: No Symptoms Pulmonary: Reports: Shortness of Breath Cardiovascular: Denies: Chest Pain, Palpitations, Dyspnea on Exertion, Lightheadedness Gastrointestinal: Reports: Abdominal Pain, Decreased Appetite, Flatus. Denies: Difficulty Swallowing, Nausea, Vomiting Genitourinary: Reports: No Symptoms Musculoskeletal: Reports: No Symptoms Skin: Denies: Cyanosis, Pallor, Diaphoresis, Erythema Psychiatric: Denies: Confusion, Depression, Mood Lability, Anxiety, Agitation, Hallucinations Neurological: Denies: Difficulty Walking, Weakness, Gait Disturbance Hematologic/Lymphatic: Reports: No Symptoms Immunologic: Reports: No Symptoms Exam - Exam Exam: See Below - Vital Signs Vital Signs: Last Vital Signs Temp 37.2 C 08/01/17 18:07 Pulse 112 H 08/01/17 18:07 Resp 18 08/01/17 18:07 BP 147/86 H 08/01/17 18:07 Pulse Ox 98 08/01/17 18:07 Weight: 111.901 kg - Exam General: Alert, Oriented, Cooperative. No: Mild Distress HEENT: Conjunctiva Clear, EACs Clear, EOMI, Hearing Intact, Mucosa Moist & Sedillo , Nares Patent, Normal Nasal Septum, Posterior Pharynx Clear, Pupils Equal, Pupils Reactive, TMs Clear, Other (w/o teeth) Neck: Supple, Trachea Midline, +2 Carotid Pulse wo Bruit Lungs: Clear to Auscultation, Normal Respiratory Effort Cardiovascular: Irregular Rhythm, Other (irregular) GI/Abdominal Exam: Normal Bowel Sounds, Soft, Distended, Tender, Abnormal Bowel Sounds, Other (surgical dressing ). No: Guarding, Rigid, Rebound (Female) Exam: Deferred Rectal (Female) Exam: Deferred Back Exam: Normal Inspection Extremities: Normal Inspection, Normal Range of Motion, Non-Tender, No Pedal Edema, Normal Capillary Refill Peripheral Pulses: 3+: Posterior Tibial (L), Posterior Tibial (R), Dorsalis Pedis (L), Dorsalis Pedis (R) Skin: Warm, Dry, Intact Neuro Extensive - Mental Status: Oriented x3, Normal Cognition, Memory Intact Neuro Extensive - Motor, Sensory, Reflexes: CN II-XII Intact (limited but grossly intact), Normal Gait Psychiatric: Alert, Normal Affect, Normal Mood - Patient Data Lab Results Last 24 hrs: Laboratory Results - last 24 hr 08/01/17 08/01/17 08/01/17 Range/Units 18:20 18:20 18:20 WBC 17.46 H (3.98-10.04) K/mm3 RBC 4.28 (3.98-5.22) M/mm3 Hgb 12.0 (11.2-15.7) gm/L Hct 37.2 (34.1-44.9) % MCV 86.9 (79.4-94.8) fl MCH 28.0 (25.6-32.2) pg MCHC 32.3 (32.2-35.5) g/dl RDW Std Deviation 44.3 (36.4-46.3) fL Plt Count 275 (182-369) K/mm3 MPV 9.8 (9.4-12.3) fl Neutrophils % (Manual) 90 H (40-60) % Band Neutrophils % 0 (0-10) % Lymphocytes % (Manual) 8 L (20-40) % Atypical Lymphs % 0 % Monocytes % (Manual) 2 (2-10) % Eosinophils % (Manual) 0 L (0.7-5.8) % Basophils % (Manual) 0 L (0.1-1.2) Platelet Estimate Adequate Plt Morphology Comment Normal Poikilocytosis 1+ slight Anisocytosis 1+ slight Microcytosis 1+ slight Macrocytosis 1+ slight Tear Drop Cells 1+ slight Ovalocytes 1+ slight RBC Morph Comment Abn Sodium 137 (136-145) mEq/L Potassium 4.2 (3.5-5.1) mEq/L Chloride 101 (98-107) mEq/L Carbon Dioxide 28 (21-32) mEq/L Anion Gap 12.2 (5-15) BUN 18 (7-18) mg/dL Creatinine 1.0 (0.55-1.02) mg/dL Est Cr Clr Drug Dosing 47.40 mL/min Estimated GFR (MDRD) 57 (>60) mL/min BUN/Creatinine Ratio 18.0 (14-18) Glucose 156 H (74-106) mg/dL Calcium 9.4 (8.5-10.1) mg/dL Magnesium 1.8 (1.8-2.4) mg/dl Total Bilirubin 0.8 (0.2-1.0) mg/dL GGT 166 H (5-55) U/L AST 137 H (15-37) U/L ALT 169 H (14-59) U/L Alkaline Phosphatase 135 H (46-116) U/L CK-MB (CK-2) 5.7 H (0-3.6) ng/ml Troponin I < 0.017 (0.00-0.056) ng/mL NT-Pro-B Natriuret Pep (0-125) pg/mL Total Protein 7.2 (6.4-8.2) g/dl Albumin 3.8 (3.4-5.0) g/dl Globulin 3.4 gm/dL Albumin/Globulin Ratio 1.1 (1-2) Lipase 89 (73-393) U/L 08/01/17 Range/Units 18:20 WBC (3.98-10.04) K/mm3 RBC (3.98-5.22) M/mm3 Hgb (11.2-15.7) gm/L Hct (34.1-44.9) % MCV (79.4-94.8) fl MCH (25.6-32.2) pg MCHC (32.2-35.5) g/dl RDW Std Deviation (36.4-46.3) fL Plt Count (182-369) K/mm3 MPV (9.4-12.3) fl Neutrophils % (Manual) (40-60) % Band Neutrophils % (0-10) % Lymphocytes % (Manual) (20-40) % Atypical Lymphs % % Monocytes % (Manual) (2-10) % Eosinophils % (Manual) (0.7-5.8) % Basophils % (Manual) (0.1-1.2) Platelet Estimate Plt Morphology Comment Poikilocytosis Anisocytosis Microcytosis Macrocytosis Tear Drop Cells Ovalocytes RBC Morph Comment Sodium (136-145) mEq/L Potassium (3.5-5.1) mEq/L Chloride (98-107) mEq/L Carbon Dioxide (21-32) mEq/L Anion Gap (5-15) BUN (7-18) mg/dL Creatinine (0.55-1.02) mg/dL Est Cr Clr Drug Dosing mL/min Estimated GFR (MDRD) (>60) mL/min BUN/Creatinine Ratio (14-18) Glucose (74-106) mg/dL Calcium (8.5-10.1) mg/dL Magnesium (1.8-2.4) mg/dl Total Bilirubin (0.2-1.0) mg/dL GGT (5-55) U/L AST (15-37) U/L ALT (14-59) U/L Alkaline Phosphatase (46-116) U/L CK-MB (CK-2) (0-3.6) ng/ml Troponin I (0.00-0.056) ng/mL NT-Pro-B Natriuret Pep 201 H (0-125) pg/mL Total Protein (6.4-8.2) g/dl Albumin (3.4-5.0) g/dl Globulin gm/dL Albumin/Globulin Ratio (1-2) Lipase (73-393) U/L Result Diagrams: 08/02/17 05:30 08/02/17 05:30 EKG INTERPRETATION EKG Date: 08/01/17 Time: 06:53 Rhythm: A-Fib Rate (Beats/Min): 112 Problem List Initiated/Reviewed/Updated: Yes Orders Last 24hrs: Active Orders 24 hr Category Date Time Status Admission Status [Patient Status] [ADT] Routine ADT 08/01/17 20:09 Active Cardiac Monitoring [RC] CONTINUOUS Care 08/01/17 21:19 Ordered Height and Weight [RC] DAILY Care 08/01/17 21:19 Ordered Intake and Output [RC] QSHIFT Care 08/01/17 21:19 Ordered Oxygen Therapy [RC] PRN Care 05/23/18 21:19 Ordered Up With Assistance [RC] ASDIRECTED Care 08/01/17 21:19 Ordered Up ad Michelle [RC] ASDIRECTED Care 08/01/17 21:19 Ordered VTE/DVT Education [RC] PER UNIT ROUTINE Care 08/01/17 21:19 Ordered Vital Signs [RC] Q4H Care 08/01/17 21:19 Ordered Consult to Case Management [CONS] Routine Cons 08/01/17 21:19 Ordered Consult to [employer] [CONS] Routine Cons 08/01/17 21:19 Ordered Regular Diet [DIET] Diet 08/01/17 Dinner Ordered Chest 1V Frontal [CR] Stat Exams 08/01/17 18:30 Taken Echo Comp wo Cont [US] Routine Exams 08/02/17 07:00 Ordered BASIC METABOLIC PANEL,BMP [CHEM] AM Lab 08/02/17 05:11 Ordered CBC WITH AUTO DIFF [HEME] AM Lab 08/02/17 05:11 Ordered MAGNESIUM [CHEM] AM Lab 08/02/17 05:11 Ordered T4 FREE [CHEM] Stat Lab 08/01/17 21:22 Ordered TSH [CHEM] Stat Lab 08/01/17 21:22 Ordered Acetaminophen [Tylenol] Med 08/01/17 21:19 Ordered 650 mg PO Q4H PRN Acetaminophen/HYDROcodone [[place] 325-5 MG] Med 08/01/17 21:19 Ordered 1 tab PO Q4H PRN Albuterol Med 08/01/17 21:17 Ordered 1 - 2 puff INH Q4H PRN Ascorbic Acid [Vitamin C] Med 08/02/17 09:00 Ordered 500 mg PO DAILY Bisacodyl [Dulcolax] Med 08/01/17 21:19 Ordered 5 mg PO DAILY PRN Budesonide/Formoterol Fumarate [Symbicort 160-4.5 Mcg Med 08/02/17 09:00 Ordered Inhaler] 2 puff INH BID Calcium Carbonate Med 08/02/17 09:00 Ordered 600 mg PO DAILY Cromolyn Sodium [Cromolyn Sodium] Med 08/02/17 09:00 Ordered 1 drop EYEBOTH BID Cyanocobalamin (Vitamin B-12) [Vitamin B-12] Med 08/02/17 09:00 Ordered 2,500 mcg PO DAILY Cyclobenzaprine [Flexeril] Med 08/01/17 21:17 Ordered 10 mg PO TID PRN Diltiazem 125 mg Med 08/01/17 19:45 Active Sodium Chloride 0.9% [Normal Saline] 100 ml IV ASDIRECTED Diltiazem [Cardizem CD] Med 08/02/17 09:00 Ordered 180 mg PO DAILY Docusate Sodium [Colace] Med 08/01/17 21:19 Ordered 100 mg PO BID PRN Docusate Sodium/Sennosides [Senna Plus] Med 08/01/17 21:19 Ordered 1 tab PO BID PRN Ferrous Gluconate [Iron] Med 08/02/17 09:00 Ordered 0.5 tab PO DAILY Fluticasone Propionate Med 08/02/17 09:00 Ordered 1 spray NASBOTH DAILY Furosemide [Lasix] Med 08/02/17 09:00 Ordered 20 mg PO DAILY Garlic [Garlic Oil] Med 08/02/17 09:00 Ordered 1,000 mg PO DAILY HYDROmorphone [Dilaudid] Med 08/01/17 21:19 Ordered 0.5 mg IVPUSH Q2H PRN LORazepam [Ativan] Med 08/01/17 21:19 Ordered 1 mg IV Q6H PRN LORazepam [Ativan] Med 08/01/17 21:16 Ordered 2 mg IVPUSH Q4H PRN Loratadine [Claritin] Med 08/02/17 09:00 Ordered 10 mg PO DAILY Magnesium Rep Pharmacy to Dose [Pharmacy to Dose - Med 08/01/17 21:30 Ordered Magnesium Replacement] 1 dose .XX ASDIRECTED Metoprolol Tartrate [Lopressor] Med 08/01/17 21:16 Ordered 5 mg IVPUSH Q4H PRN Montelukast [Singulair] Med 08/02/17 09:00 Ordered 10 mg PO DAILY Multivitamin Med 08/02/17 09:00 Ordered 1 tab PO DAILY [place]-3/DHA/Epa/Fish Oil [Fish Oil 1,000 mg Softgel] Med 08/02/17 09:00 Ordered 1 cap PO DAILY Ondansetron [Zofran] Med 08/01/17 21:19 Ordered 4 mg IV Q6H PRN Pantoprazole [ProTONIX IV] Med 08/02/17 09:00 Ordered 40 mg IV Q12HR Polyethylene Glycol 3350 [MiraLAX] Med 08/01/17 21:19 Ordered 17 gm PO DAILY PRN Potassium Rep Pharmacy to Dose [Pharmacy to Dose - Med 08/01/17 21:30 Ordered Potassium Replacement] 1 dose .XX ASDIRECTED Promethazine [Phenergan] 12.5 mg Med 08/01/17 21:19 Ordered Sodium Chloride 0.9% [Normal Saline] 50 ml IV Q6H Sodium Chloride 0.9% [Saline Flush] Med 08/01/17 21:19 Ordered 10 ml FLUSH ASDIRECTED PRN Sodium Chloride 0.9% [Saline Flush] Med 08/01/17 18:41 Active 10 ml FLUSH ONETIME PRN Vitamin B Complex Med 08/02/17 09:00 Ordered 1 tab PO DAILY Zolpidem [Ambien] Med 08/02/17 21:00 Ordered 5 mg PO BEDTIME atorvaSTATin Med 08/02/17 21:00 Ordered 20 mg PO BEDTIME hydrALAZINE [Apresoline] Med 08/01/17 21:16 Ordered 20 mg IVPUSH Q4H PRN sitaGLIPtin Phos/Metformin HCl [Janumet 50-1,000 MG] Med 08/02/17 09:00 Ordered 1 tab PO BID traZODone Med 08/02/17 21:00 Ordered 50 mg PO BEDTIME Saline Lock Insert [OM.PC] Routine Oth 08/01/17 21:19 Ordered Resuscitation Status Routine Resus Stat 08/01/17 21:19 Ordered Medication Orders Acetaminophen (Tylenol) 650 mg PO Q4H PRN PRN Reason: Pain (Mild 1-3)/fever Hydrocodone Bitart/Acetaminophen ([place] 325-5 Mg) 1 tab PO Q4H PRN PRN Reason: Pain (moderate 4-6) Ascorbic Acid (Vitamin C) 500 mg PO DAILY [facility] Bisacodyl (Dulcolax) 5 mg PO DAILY PRN PRN Reason: Constipation Calcium Carbonate/Glycine (Calcium Carbonate) 600 mg PO DAILY [facility] Cyclobenzaprine HCl (Flexeril) 10 mg PO TID PRN PRN Reason: muscle spasms Docusate Sodium (Colace) 100 mg PO BID PRN PRN Reason: Constipation Furosemide (Lasix) 20 mg PO DAILY [facility] Hydralazine HCl (Apresoline) 20 mg IVPUSH Q4H PRN PRN Reason: Hypertension Hydromorphone HCl (Dilaudid) 0.5 mg IVPUSH Q2H PRN PRN Reason: Pain (severe 7-10) Diltiazem HCl 125 mg/ Sodium (Chloride) 125 mls @ 5 mls/hr IV ASDIRECTED [facility] Last Admin: 08/01/17 19:57 Dose: 5 mg/hr, 5 mls/hr Promethazine HCl 12.5 mg/ (Sodium Chloride) 50.5 mls @ 100 mls/hr IV Q6H PRN PRN Reason: Nausea/Vomiting Lorazepam (Ativan) 2 mg IVPUSH Q4H PRN PRN Reason: Seizures Lorazepam (Ativan) 1 mg IV Q6H PRN PRN Reason: Anxiety Magnesium Sulfate (Pharmacy To Dose - Magnesium Replacement) 1 dose .XX ASDIRECTED [facility] Metoprolol Tartrate (Lopressor) 5 mg IVPUSH Q4H PRN PRN Reason: Tachycardia Montelukast Sodium (Singulair) 10 mg PO DAILY [facility] Non-Formulary Medication (Albuterol) 1 - 2 puff INH Q4H PRN PRN Reason: asthma Non-Formulary Medication (Atorvastatin) 20 mg PO BEDTIME [facility] Non-Formulary Medication (Budesonide/Formoterol Fumarate [Symbicort 160-4.5 Mcg Inhaler]) 2 puff INH BID [facility] Non-Formulary Medication (Cromolyn Sodium [Cromolyn Sodium]) 1 drop EYEBOTH BID [facility] Non-Formulary Medication (Cyanocobalamin (Vitamin B-12) [Vitamin B-12]) 2,500 mcg PO DAILY [facility] Non-Formulary Medication (Ferrous Gluconate [Iron]) 0.5 tab PO DAILY [facility] Non-Formulary Medication (Fluticasone Propionate) 1 spray NASBOTH DAILY [facility] Non-Formulary Medication (Garlic [Garlic Oil]) 1,000 mg PO DAILY [facility] Non-Formulary Medication (Loratadine [Claritin]) 10 mg PO DAILY [facility] Non-Formulary Medication (Multivitamin) 1 tab PO DAILY [facility] Non-Formulary Medication ([place]-3/Dha/Epa/Fish Oil [Fish Oil 1,000 Mg Softgel]) 1 cap PO DAILY [facility] Non-Formulary Medication (Sitagliptin Phos/Metformin Hcl [Janumet 50-1,000 Mg]) 1 tab PO BID [facility] Non-Formulary Medication (Vitamin B Complex) 1 tab PO DAILY [facility] Ondansetron HCl (Zofran) 4 mg IV Q6H PRN PRN Reason: Nausea/Vomiting Pantoprazole Sodium (Protonix Iv) 40 mg IV Q12HR [facility] Polyethylene Glycol (Miralax) 17 gm PO DAILY PRN PRN Reason: Constipation Potassium Chloride (Pharmacy To Dose - Potassium Replacement) 1 dose .XX ASDIRECTED [facility] Senna/Docusate Sodium (Senna Plus) 1 tab PO BID PRN PRN Reason: Constipation Sodium Chloride (Saline Flush) 10 ml FLUSH ONETIME PRN PRN Reason: IV FLUSH Last Admin: 08/01/17 19:05 Dose: 10 ml Sodium Chloride (Saline Flush) 10 ml FLUSH ASDIRECTED PRN PRN Reason: Keep Vein Open Trazodone HCl (Trazodone) 50 mg PO BEDTIME [facility] Zolpidem Tartrate (Ambien) 5 mg PO BEDTIME [facility] Assessment/Plan Comment:: Assessment/Plan: Acute: Atrial Fibrillation with RVR - HR in the 150s - Likely 2/2 Stress - Thyroid Panel-normal - Cardizem drip-titrate to keep HR < 100 - [id number] score 3:Moderate-High Risk Of Stroke - Lovenox 1mg/kg BID then start warfarin in AM; pharmacy to dose - CM to check for insurance eligibility with xarelto or eliquis in AM Abdominal Pain S/p Lap Cholecystectomy - Defer to Dr. Abbott - Received Iv Abx in ED - PRN pain medication Metabolic Syndrome Screening Chronic: Impaired vision Hyperlipidemia Asthma Type 2 diabetes Insomnia Obesity with BMI 46 Plan: Admit to ICU Resume Home Meds Routine AM Labs Dietary consult for weight management and warfarin diet not eligible for NOACs A1C, Lipid panel, TFT in AM Accu-check in AM per patient PT/OT consult IS as directed SW/CM for d/c planning Code status:1
[2017-08-01] MEDS ORDERED: Zolpidem 5 MG Tab PO ONE (21:40)
[2017-08-01] MEDS ORDERED: traZODone 50 MG Tab PO ONE (21:40)
[2017-08-01] MEDS ORDERED: Simvastatin 20 MG Tab PO ONE (22:00)
[2017-08-01] MEDS ORDERED: Magnesium Sulfate/Water 50 ML IV ONE (22:00)
[2017-08-01] MEDS: Acetaminophen/HYDROcodone 325-5 MG Tab PO PRN (22:10)
[2017-08-01] MEDS ORDERED: Enoxaparin 60 MG/0.6 ML Syringe SUBCUT ONE (22:30)
[2017-08-01] MEDS: Formoterol/Mometasone 200-5 MCG 8.8 GM Inhaler IH SCH (22:38)
--- NOTE | 2017-08-02 06:51 | PCM.PN ---
- General Info Date of Service: 08/02/17 Admission Dx/Problem (Free Text): Admission Diagnosis/Problem Admission Diagnosis/Problem Atrial fibrillation with rapid ventricular response Subjective Update: Follow Up Functional Status: Reports: Tolerating Diet, Ambulating, Urinating, Incentive Spirometry. Denies: Pain Controlled, New Symptoms Pain Score: 7 - Review of Systems General: Denies: Fever, Weakness, Fatigue, Malaise, Chills HEENT: Reports: No Symptoms Pulmonary: Denies: Shortness of Breath, Pleuritic Chest Pain, Cough Cardiovascular: Denies: Chest Pain, Palpitations, Dyspnea on Exertion, Lightheadedness Gastrointestinal: Denies: Abdominal Pain, Nausea, Vomiting Genitourinary: Reports: No Symptoms Musculoskeletal: Reports: No Symptoms Skin: Denies: Cyanosis, Mottled, Pallor, Diaphoresis, Rash Neurological: Denies: Confusion, Difficulty Walking, Weakness, Gait Disturbance Psychiatric: Denies: Depression, Anxiety, Agitation, Hallucinations Systems Review Comment:: No significant overnight or acute issues. She feels good this AM. She finally converted to sinus rhythm. Her pain is not controlled. Her WBC is down to 15.80 and she is afebrile. She looks comfortable in bed. - Patient Data Vitals - Most Recent: Last Vital Signs Temp 36.9 C 08/01/17 21:19 Pulse 112 H 08/01/17 18:07 Resp 20 08/02/17 04:00 BP 121/81 08/02/17 06:00 Pulse Ox 93 L 08/02/17 04:00 Weight - Most Recent: 66.134 kg I&O - Last 24 Hours: Intake & Output 08/01/17 08/01/17 08/02/17 14:59 22:59 06:59 Intake Total 591 Output Total 400 850 Balance -400 -259 Lab Results Last 24 Hours: Laboratory Results - last 24 hr 08/01/17 08/01/17 08/01/17 Range/Units 18:20 18:20 18:20 WBC 17.46 H (3.98-10.04) K/mm3 RBC 4.28 (3.98-5.22) M/mm3 Hgb 12.0 (11.2-15.7) gm/L Hct 37.2 (34.1-44.9) % MCV 86.9 (79.4-94.8) fl MCH 28.0 (25.6-32.2) pg MCHC 32.3 (32.2-35.5) g/dl RDW Std Deviation 44.3 (36.4-46.3) fL Plt Count 275 (182-369) K/mm3 MPV 9.8 (9.4-12.3) fl Neut % (Auto) (34.0-71.1) % Lymph % (Auto) (19.3-51.7) % [place] % (Auto) (4.7-12.5) % Eos % (Auto) (0.7-5.8) Baso % (Auto) (0.1-1.2) % Neut # (Auto) (1.56-6.13) K/mm3 Lymph # (Auto) (1.18-3.74) K/mm3 [place] # (Auto) (0.24-0.36) K/mm3 Eos # (Auto) (0.04-0.36) K/mm3 Baso # (Auto) (0.01-0.08) K/mm3 Neutrophils % (Manual) 90 H (40-60) % Band Neutrophils % 0 (0-10) % Lymphocytes % (Manual) 8 L (20-40) % Atypical Lymphs % 0 % Monocytes % (Manual) 2 (2-10) % Eosinophils % (Manual) 0 L (0.7-5.8) % Basophils % (Manual) 0 L (0.1-1.2) Platelet Estimate Adequate Plt Morphology Comment Normal Poikilocytosis 1+ slight Anisocytosis 1+ slight Microcytosis 1+ slight Macrocytosis 1+ slight Tear Drop Cells 1+ slight Ovalocytes 1+ slight RBC Morph Comment Abn PT (9.5-12.1) SECONDS INR Sodium 137 (136-145) mEq/L Potassium 4.2 (3.5-5.1) mEq/L Chloride 101 (98-107) mEq/L Carbon Dioxide 28 (21-32) mEq/L Anion Gap 12.2 (5-15) BUN 18 (7-18) mg/dL Creatinine 1.0 (0.55-1.02) mg/dL Est Cr Clr Drug Dosing 47.40 mL/min Estimated GFR (MDRD) 57 (>60) mL/min BUN/Creatinine Ratio 18.0 (14-18) Glucose 156 H (74-106) mg/dL POC Glucose (70-105) mg/dL Calcium 9.4 (8.5-10.1) mg/dL Magnesium 1.8 (1.8-2.4) mg/dl Total Bilirubin 0.8 (0.2-1.0) mg/dL GGT 166 H (5-55) U/L AST 137 H (15-37) U/L ALT 169 H (14-59) U/L Alkaline Phosphatase 135 H (46-116) U/L CK-MB (CK-2) 5.7 H (0-3.6) ng/ml Troponin I < 0.017 (0.00-0.056) ng/mL NT-Pro-B Natriuret Pep (0-125) pg/mL Total Protein 7.2 (6.4-8.2) g/dl Albumin 3.8 (3.4-5.0) g/dl Globulin 3.4 gm/dL Albumin/Globulin Ratio 1.1 (1-2) Triglycerides (<150) mg/dL Cholesterol (<200) mg/dL LDL Cholesterol Direct (<100) mg/dL HDL Cholesterol (40-59) mg/dL Lipase 89 (73-393) U/L Free T4 (0.76-1.46) ng/dL TSH 3rd Generation (0.358-3.74) uIU/mL Ur Random Microalbumin (1.3-20.0) mg/L 08/01/17 08/01/17 08/01/17 Range/Units 18:20 18:20 22:27 WBC (3.98-10.04) K/mm3 RBC (3.98-5.22) M/mm3 Hgb (11.2-15.7) gm/L Hct (34.1-44.9) % MCV (79.4-94.8) fl MCH (25.6-32.2) pg MCHC (32.2-35.5) g/dl RDW Std Deviation (36.4-46.3) fL Plt Count (182-369) K/mm3 MPV (9.4-12.3) fl Neut % (Auto) (34.0-71.1) % Lymph % (Auto) (19.3-51.7) % [place] % (Auto) (4.7-12.5) % Eos % (Auto) (0.7-5.8) Baso % (Auto) (0.1-1.2) % Neut # (Auto) (1.56-6.13) K/mm3 Lymph # (Auto) (1.18-3.74) K/mm3 [place] # (Auto) (0.24-0.36) K/mm3 Eos # (Auto) (0.04-0.36) K/mm3 Baso # (Auto) (0.01-0.08) K/mm3 Neutrophils % (Manual) (40-60) % Band Neutrophils % (0-10) % Lymphocytes % (Manual) (20-40) % Atypical Lymphs % % Monocytes % (Manual) (2-10) % Eosinophils % (Manual) (0.7-5.8) % Basophils % (Manual) (0.1-1.2) Platelet Estimate Plt Morphology Comment Poikilocytosis Anisocytosis Microcytosis Macrocytosis Tear Drop Cells Ovalocytes RBC Morph Comment PT (9.5-12.1) SECONDS INR Sodium (136-145) mEq/L Potassium (3.5-5.1) mEq/L Chloride (98-107) mEq/L Carbon Dioxide (21-32) mEq/L Anion Gap (5-15) BUN (7-18) mg/dL Creatinine (0.55-1.02) mg/dL Est Cr Clr Drug Dosing mL/min Estimated GFR (MDRD) (>60) mL/min BUN/Creatinine Ratio (14-18) Glucose (74-106) mg/dL POC Glucose 189 H (70-105) mg/dL Calcium (8.5-10.1) mg/dL Magnesium (1.8-2.4) mg/dl Total Bilirubin (0.2-1.0) mg/dL GGT (5-55) U/L AST (15-37) U/L ALT (14-59) U/L Alkaline Phosphatase (46-116) U/L CK-MB (CK-2) (0-3.6) ng/ml Troponin I (0.00-0.056) ng/mL NT-Pro-B Natriuret Pep 201 H (0-125) pg/mL Total Protein (6.4-8.2) g/dl Albumin (3.4-5.0) g/dl Globulin gm/dL Albumin/Globulin Ratio (1-2) Triglycerides (<150) mg/dL Cholesterol (<200) mg/dL LDL Cholesterol Direct (<100) mg/dL HDL Cholesterol (40-59) mg/dL Lipase (73-393) U/L Free T4 2.07 H (0.76-1.46) ng/dL TSH 3rd Generation 1.346 (0.358-3.74) uIU/mL Ur Random Microalbumin (1.3-20.0) mg/L 08/01/17 08/02/17 08/02/17 Range/Units 22:35 02:30 05:30 WBC 15.80 H (3.98-10.04) K/mm3 RBC 3.94 L (3.98-5.22) M/mm3 Hgb 11.0 L (11.2-15.7) gm/L Hct 34.7 (34.1-44.9) % MCV 88.1 (79.4-94.8) fl MCH 27.9 (25.6-32.2) pg MCHC 31.7 L (32.2-35.5) g/dl RDW Std Deviation 44.6 (36.4-46.3) fL Plt Count 243 (182-369) K/mm3 MPV 10.1 (9.4-12.3) fl Neut % (Auto) 86.7 H (34.0-71.1) % Lymph % (Auto) 6.1 L (19.3-51.7) % [place] % (Auto) 6.6 (4.7-12.5) % Eos % (Auto) 0.3 L (0.7-5.8) Baso % (Auto) 0.1 (0.1-1.2) % Neut # (Auto) 13.71 H (1.56-6.13) K/mm3 Lymph # (Auto) 0.96 L (1.18-3.74) K/mm3 [place] # (Auto) 1.05 H (0.24-0.36) K/mm3 Eos # (Auto) 0.04 (0.04-0.36) K/mm3 Baso # (Auto) 0.01 (0.01-0.08) K/mm3 Neutrophils % (Manual) (40-60) % Band Neutrophils % (0-10) % Lymphocytes % (Manual) (20-40) % Atypical Lymphs % % Monocytes % (Manual) (2-10) % Eosinophils % (Manual) (0.7-5.8) % Basophils % (Manual) (0.1-1.2) Platelet Estimate Plt Morphology Comment Poikilocytosis Anisocytosis Microcytosis Macrocytosis Tear Drop Cells Ovalocytes RBC Morph Comment PT 12.1 (9.5-12.1) SECONDS INR 1.11 Sodium (136-145) mEq/L Potassium (3.5-5.1) mEq/L Chloride (98-107) mEq/L Carbon Dioxide (21-32) mEq/L Anion Gap (5-15) BUN (7-18) mg/dL Creatinine (0.55-1.02) mg/dL Est Cr Clr Drug Dosing mL/min Estimated GFR (MDRD) (>60) mL/min BUN/Creatinine Ratio (14-18) Glucose (74-106) mg/dL POC Glucose (70-105) mg/dL Calcium (8.5-10.1) mg/dL Magnesium (1.8-2.4) mg/dl Total Bilirubin (0.2-1.0) mg/dL GGT (5-55) U/L AST (15-37) U/L ALT (14-59) U/L Alkaline Phosphatase (46-116) U/L CK-MB (CK-2) (0-3.6) ng/ml Troponin I (0.00-0.056) ng/mL NT-Pro-B Natriuret Pep (0-125) pg/mL Total Protein (6.4-8.2) g/dl Albumin (3.4-5.0) g/dl Globulin gm/dL Albumin/Globulin Ratio (1-2) Triglycerides (<150) mg/dL Cholesterol (<200) mg/dL LDL Cholesterol Direct (<100) mg/dL HDL Cholesterol (40-59) mg/dL Lipase (73-393) U/L Free T4 (0.76-1.46) ng/dL TSH 3rd Generation (0.358-3.74) uIU/mL Ur Random Microalbumin 11.2 (1.3-20.0) mg/L 08/02/17 08/02/17 Range/Units 05:30 05:30 WBC (3.98-10.04) K/mm3 RBC (3.98-5.22) M/mm3 Hgb (11.2-15.7) gm/L Hct (34.1-44.9) % MCV (79.4-94.8) fl MCH (25.6-32.2) pg MCHC (32.2-35.5) g/dl RDW Std Deviation (36.4-46.3) fL Plt Count (182-369) K/mm3 MPV (9.4-12.3) fl Neut % (Auto) (34.0-71.1) % Lymph % (Auto) (19.3-51.7) % [place] % (Auto) (4.7-12.5) % Eos % (Auto) (0.7-5.8) Baso % (Auto) (0.1-1.2) % Neut # (Auto) (1.56-6.13) K/mm3 Lymph # (Auto) (1.18-3.74) K/mm3 [place] # (Auto) (0.24-0.36) K/mm3 Eos # (Auto) (0.04-0.36) K/mm3 Baso # (Auto) (0.01-0.08) K/mm3 Neutrophils % (Manual) (40-60) % Band Neutrophils % (0-10) % Lymphocytes % (Manual) (20-40) % Atypical Lymphs % % Monocytes % (Manual) (2-10) % Eosinophils % (Manual) (0.7-5.8) % Basophils % (Manual) (0.1-1.2) Platelet Estimate Plt Morphology Comment Poikilocytosis Anisocytosis Microcytosis Macrocytosis Tear Drop Cells Ovalocytes RBC Morph Comment PT (9.5-12.1) SECONDS INR Sodium 136 (136-145) mEq/L Potassium 4.3 (3.5-5.1) mEq/L Chloride 102 (98-107) mEq/L Carbon Dioxide 28 (21-32) mEq/L Anion Gap 10.3 (5-15) BUN 16 (7-18) mg/dL Creatinine 1.0 (0.55-1.02) mg/dL Est Cr Clr Drug Dosing 47.40 mL/min Estimated GFR (MDRD) 57 (>60) mL/min BUN/Creatinine Ratio 16.0 (14-18) Glucose 149 H (74-106) mg/dL POC Glucose 178 H (70-105) mg/dL Calcium 8.8 (8.5-10.1) mg/dL Magnesium 2.2 (1.8-2.4) mg/dl Total Bilirubin (0.2-1.0) mg/dL GGT (5-55) U/L AST (15-37) U/L ALT (14-59) U/L Alkaline Phosphatase (46-116) U/L CK-MB (CK-2) (0-3.6) ng/ml Troponin I (0.00-0.056) ng/mL NT-Pro-B Natriuret Pep (0-125) pg/mL Total Protein (6.4-8.2) g/dl Albumin (3.4-5.0) g/dl Globulin gm/dL Albumin/Globulin Ratio (1-2) Triglycerides 43 (<150) mg/dL Cholesterol 111 (<200) mg/dL LDL Cholesterol Direct 41 (<100) mg/dL HDL Cholesterol 58.0 (40-59) mg/dL Lipase (73-393) U/L Free T4 (0.76-1.46) ng/dL TSH 3rd Generation (0.358-3.74) uIU/mL Ur Random Microalbumin (1.3-20.0) mg/L Med Orders - Current: Current Medications Acetaminophen (Tylenol) 650 mg PO Q4H PRN PRN Reason: Pain (Mild 1-3)/fever Hydrocodone Bitart/Acetaminophen ([place] 325-5 Mg) 1 tab PO Q4H PRN PRN Reason: Pain (moderate 4-6) Last Admin: 08/01/17 22:10 Dose: 1 tab Albuterol (Proventil Hfa) 1 - 2 gm INH Q4H PRN PRN Reason: asthma Alogliptin Benzoate (Alogliptin) 12.5 mg PO BID [facility] Ascorbic Acid (Vitamin C) 500 mg PO DAILY [facility] Bisacodyl (Dulcolax) 5 mg PO DAILY PRN PRN Reason: Constipation Calcium Carbonate/Glycine (Calcium Carbonate) 600 mg PO DAILY [facility] Cyanocobalamin (Vitamin B12) 2,500 mcg PO DAILY [facility] Cyclobenzaprine HCl (Flexeril) 10 mg PO TID PRN PRN Reason: muscle spasms Diltiazem HCl (Cardizem Cd) 180 mg PO DAILY [facility] Docusate Sodium (Colace) 100 mg PO BID PRN PRN Reason: Constipation Enoxaparin Sodium (Lovenox) 120 mg SUBCUT Q12H [facility] Fish Oil (Fish Oil) 1 gm PO DAILY [facility] Flunisolide (Nasalide Nasal [place]) 0 ml NASBOTH Q12H [facility] Furosemide (Lasix) 20 mg PO DAILY [facility] Hydralazine HCl (Apresoline) 20 mg IVPUSH Q4H PRN PRN Reason: Hypertension Hydromorphone HCl (Dilaudid) 0.5 mg IVPUSH Q2H PRN PRN Reason: Pain (severe 7-10) Last Admin: 08/02/17 02:24 Dose: 0.5 mg Diltiazem HCl 125 mg/ Sodium (Chloride) 125 mls @ 5 mls/hr IV ASDIRECTED [facility] Last Infusion: 08/02/17 04:00 Dose: 10 mg/hr, 10 mls/hr Promethazine HCl 12.5 mg/ (Sodium Chloride) 50.5 mls @ 100 mls/hr IV Q6H PRN PRN Reason: Nausea/Vomiting Loratadine (Claritin) 10 mg PO DAILY [facility] Lorazepam (Ativan) 2 mg IVPUSH Q4H PRN PRN Reason: Seizures Lorazepam (Ativan) 1 mg IV Q6H PRN PRN Reason: Anxiety Magnesium Sulfate (Pharmacy To Dose - Magnesium Replacement) 1 dose .XX ASDIRECTED [facility] Metformin HCl (Glucophage) 1,000 mg PO BIDMEALS [facility] Metoprolol Tartrate (Lopressor) 5 mg IVPUSH Q4H PRN PRN Reason: Tachycardia Mometasone Furoate/Formoterol Fumar (Dulera 200-5 Mcg) 2 puff IH BIDRT [facility] Last Admin: 08/01/17 22:38 Dose: 2 puff Montelukast Sodium (Singulair) 10 mg PO DAILY [facility] Multivitamins (Thera) 1 each PO DAILY [facility] Non-Formulary Medication (Cromolyn Sodium [Cromolyn Sodium]) 1 drop EYEBOTH BID [facility] Non-Formulary Medication (Ferrous Gluconate [Iron]) 0.5 tab PO DAILY [facility] Non-Formulary Medication (Garlic [Garlic Oil]) 1,000 mg PO DAILY [facility] Non-Formulary Medication (Sitagliptin Phos/Metformin Hcl [Janumet 50-1,000 Mg]) 1 tab PO BID [facility] Ondansetron HCl (Zofran) 4 mg IV Q6H PRN PRN Reason: Nausea/Vomiting Pantoprazole Sodium (Protonix Iv) 40 mg IV Q12HR [facility] Polyethylene Glycol (Miralax) 17 gm PO DAILY PRN PRN Reason: Constipation Potassium Chloride (Pharmacy To Dose - Potassium Replacement) 1 dose .XX ASDIRECTED [facility] Senna/Docusate Sodium (Senna Plus) 1 tab PO BID PRN PRN Reason: Constipation Simvastatin (Zocor) 20 mg PO BEDTIME [facility] Sodium Chloride (Saline Flush) 10 ml FLUSH ONETIME PRN PRN Reason: IV FLUSH Last Admin: 08/01/17 19:05 Dose: 10 ml Sodium Chloride (Saline Flush) 10 ml FLUSH ASDIRECTED PRN PRN Reason: Keep Vein Open Trazodone HCl (Trazodone) 50 mg PO BEDTIME [facility] Vitamin B Complex/Vitamin C (Super B With Vitamin C) 1 cap PO DAILY [facility] Warfarin Sodium (Pharmacy To Dose - Warfarin) 1 dose .XX ASDIRECTED [facility] Warfarin Sodium (Coumadin Sliding Scale) 1 each PO DAILY [facility] Warfarin Sodium (Coumadin) 5 mg PO 1800 [facility] Stop: 08/02/17 18:01 Zolpidem Tartrate (Ambien) 5 mg PO BEDTIME [facility] Discontinued Medications Diltiazem HCl (Diltiazem) 10 mg IVPUSH ONETIME ONE Stop: 08/01/17 19:05 Last Admin: 08/01/17 19:20 Dose: 10 mg Enoxaparin Sodium (Lovenox) 110 mg SUBCUT ONETIME ONE Stop: 08/01/17 22:31 Last Admin: 08/01/17 22:19 Dose: 110 mg Hydromorphone HCl (Dilaudid) 1 mg IVPUSH ONETIME ONE Stop: 08/01/17 18:32 Last Admin: 08/01/17 18:38 Dose: 1 mg Dextrose/Sodium Chloride (Dextrose 5%-Normal Saline) 1,000 mls @ 150 mls/hr IV ASDIRECTED [facility] Last Admin: 08/01/17 18:37 Dose: 150 mls/hr Dextrose/Sodium Chloride (Dextrose 5%-Normal Saline) 1,000 mls @ 500 mls/hr IV ASDIRECTED [facility] Diltiazem HCl 125 mg/ Sodium (Chloride) 125 mls @ 10 mls/hr IV ASDIRECTED [facility] Cefotaxime Sodium 2 gm/ Sodium (Chloride) 50 mls @ 100 mls/hr IV ONETIME ONE Stop: 08/01/17 20:06 Last Admin: 08/01/17 20:14 Dose: 100 mls/hr Magnesium Sulfate (Magnesium Sulfate 2 Gm In Water 50 Ml) 50 mls @ 25 mls/hr IV ONETIME ONE Stop: 08/01/17 23:59 Last Admin: 08/01/17 22:11 Dose: 25 mls/hr Iopamidol (Isovue-300 (61%)) 150 ml IVPUSH ONETIME ONE Stop: 08/01/17 18:42 Last Admin: 08/01/17 19:05 Dose: 125 ml Metoclopramide HCl (Reglan) 7.5 mg IVPUSH ONETIME ONE Stop: 08/01/17 18:32 Last Admin: 08/01/17 18:37 Dose: 7.5 mg Simvastatin (Zocor) 20 mg PO ONETIME ONE Stop: 08/01/17 22:01 Last Admin: 08/01/17 22:11 Dose: 20 mg Trazodone HCl (Trazodone) 50 mg PO ONETIME ONE Stop: 08/01/17 21:41 Last Admin: 08/01/17 22:11 Dose: 50 mg Zolpidem Tartrate (Ambien) 5 mg PO ONETIME ONE Stop: 08/01/17 21:41 Last Admin: 08/01/17 22:10 Dose: 5 mg - Exam General: Alert, Oriented, Cooperative, No Acute Distress, Other (Obese) HEENT: Pupils Equal, Pupils Reactive, EOMI, Mucous Membr. Moist/[place], Other (w/ o teeth) Neck: Supple, Trachea Midline, No JVD, No Thyromegaly Lungs: Clear to Auscultation, Normal Respiratory Effort, Decreased Breath Sounds Cardiovascular: Regular Rate, Regular Rhythm GI/Abdominal Exam: Normal Bowel Sounds, Soft, No Organomegaly, No Distention, No Mass, Pelvis Stable, Tender (mid abdomen) (Female) Exam: Deferred Back Exam: Normal Inspection, Decreased Range of Motion Extremities: Normal Inspection, Normal Range of Motion, Non-Tender, No Pedal Edema, Normal Capillary Refill Peripheral Pulses: 2+: Dorsalis Pedis (L), Dorsalis Pedis (R) Skin: Warm, Dry, Intact Neurological: No New Focal Deficit Psy/Mental Status: Alert, Normal Affect, Normal Mood EKG INTERPRETATION EKG Date: 08/02/17 Time: 09:06 Rhythm: NSR Rate (Beats/Min): 70 [place]: Normal P-Wave: Present QRS: Normal ST-T: Normal QT: Normal Comparison: Change From Previous EKG - Problem List Review Problem List Initiated/Reviewed/Updated: Yes - My Orders Last 24 Hours: My Active Orders 08/01/17 21:16 LORazepam [Ativan] 2 mg IVPUSH Q4H PRN Metoprolol Tartrate [Lopressor] 5 mg IVPUSH Q4H PRN hydrALAZINE [Apresoline] 20 mg IVPUSH Q4H PRN 08/01/17 21:17 Albuterol [Proventil HFA] 1 - 2 gm INH Q4H PRN Cyclobenzaprine [Flexeril] 10 mg PO TID PRN 08/01/17 21:19 Cardiac Monitoring [RC] CONTINUOUS Height and Weight [RC] 04 Intake and Output [RC] 04,16 Oxygen Therapy [RC] PRN Up With Assistance [RC] ASDIRECTED Up ad Michelle [RC] ASDIRECTED VTE/DVT Education [RC] PER UNIT ROUTINE Vital Signs [RC] Q1HR Consult to Case Management [CONS] Routine Consult to Hog Dropper [CONS] Routine Acetaminophen [Tylenol] 650 mg PO Q4H PRN Acetaminophen/HYDROcodone [[place] 325-5 MG] 1 tab PO Q4H PRN Bisacodyl [Dulcolax] 5 mg PO DAILY PRN Docusate Sodium [Colace] 100 mg PO BID PRN Docusate Sodium/Sennosides [Senna Plus] 1 tab PO BID PRN HYDROmorphone [Dilaudid] 0.5 mg IVPUSH Q2H PRN LORazepam [Ativan] 1 mg IV Q6H PRN Ondansetron [Zofran] 4 mg IV Q6H PRN Polyethylene Glycol 3350 [MiraLAX] 17 gm PO DAILY PRN Promethazine [Phenergan] 12.5 mg Sodium Chloride 0.9% [Normal Saline] 50 ml IV Q6H Sodium Chloride 0.9% [Saline Flush] 10 ml FLUSH ASDIRECTED PRN Saline Lock Insert [OM.PC] Routine Resuscitation Status Routine 08/01/17 21:30 Magnesium Rep Pharmacy to Dose [Pharmacy to Dose - Magnesium Replacement] 1 dose .XX ASDIRECTED Potassium Rep Pharmacy to Dose [Pharmacy to Dose - Potassium Replacement] 1 dose .XX ASDIRECTED 08/01/17 21:45 Mometasone/Formoterol [Dulera 200-5 MCG] 2 puff IH BIDRT 08/01/17 21:50 Accu Check [Blood Glucose Check, Bedside] [RC] 07 08/01/17 21:51 Notify Provider Consults [RC] ASDIRECTED Consult to Physician [CONS] Routine 08/01/17 22:15 Warfarin Pharmacy to Dose [Pharmacy to Dose - Warfarin] 1 dose .XX ASDIRECTED 08/01/17 23:23 Consult to Dietary [Consult to Clinical Trial Leader] [CONS] Routine Consult to Occupational Therapy [OT Evaluation and Treatment] [CONS] Routine PT Evaluation and Treatment [CONS] Routine 08/01/17 23:24 Incentive Spirometry [RT Incentive Spirometry] [RC] ASDIRECTED 08/01/17 Dinner Regular Diet [DIET] 08/02/17 02:30 MICROALBUMIN,URINE RANDOM [URCHEM] Stat 08/02/17 05:30 A1C [GLYCOSYLATED HEMOGLOBIN,HGBA1C] [CHEM] AM CBC WITH AUTO DIFF [HEME] AM 08/02/17 07:00 Echo Comp wo Cont [US] Routine metFORMIN [Glucophage] 1,000 mg PO BIDMEALS 08/02/17 09:00 Alogliptin Benzoate [Alogliptin] 12.5 mg PO BID Ascorbic Acid [Vitamin C] 500 mg PO DAILY Calcium Carbonate 600 mg PO DAILY Cromolyn Sodium [Cromolyn Sodium] 1 drop EYEBOTH BID Cyanocobalamin (Vitamin B12) [Vitamin B12] 2,500 mcg PO DAILY Diltiazem [Cardizem CD] 180 mg PO DAILY Enoxaparin [Lovenox] 120 mg SUBCUT Q12H Ferrous Gluconate [Iron] 0.5 tab PO DAILY Fish Oil/[place]-3 Fatty Acids [Fish Oil] 1 gm PO DAILY Flunisolide [Nasalide Nasal [place]] 0 ml NASBOTH Q12H Furosemide [Lasix] 20 mg PO DAILY Garlic [Garlic Oil] 1,000 mg PO DAILY Loratadine [Claritin] 10 mg PO DAILY Montelukast [Singulair] 10 mg PO DAILY Multivitamins,Therapeutic [Thera] 1 each PO DAILY Pantoprazole [ProTONIX IV] 40 mg IV Q12HR Vitamin B Complex with C [Super B With Vitamin C] 1 cap PO DAILY Warfarin Sliding Scale [Coumadin Sliding Scale] 1 each PO DAILY sitaGLIPtin Phos/Metformin HCl [Janumet 50-1,000 MG] 1 tab PO BID 08/02/17 18:00 Warfarin [Coumadin] 5 mg PO 1800 08/02/17 21:00 Simvastatin [Zocor] 20 mg PO BEDTIME Zolpidem [Ambien] 5 mg PO BEDTIME traZODone 50 mg PO BEDTIME 08/02/17 Breakfast ADA Diabetic [[place] [employer] Diet] [DIET] - Plan Plan:: Assessment/Plan: Acute: S/p Atrial Fibrillation with RVR - HR in the 150s - Likely 2/2 Stress - Thyroid Panel-normal - Cardizem drip-titrate to keep HR < 100- now off; She is on Cardizem CD 180 mg po daily - [id number] score 3:Moderate-High Risk Of Stroke - She has been approved for xarelto; will start dose tonight - D/c warfarin/lovenox protocol Abdominal Pain S/p Lap Cholecystectomy - Defer to Dr. Abbott - PRN pain medication - HIDA scan -negative - Resume IV Abx BID x2 doses - Stays for [address] Wan Metabolic Syndrome - She has HTN, DM/Hyperlycemia and Abdominal Girth > 35 - Advised LSM - Dietary consult for weight management Chronic: Impaired vision Hyperlipidemia Asthma Type 2 Diabetes, A1C 5.8 Insomnia Obesity with BMI 27.5 ? - had bariatric surgery in the past Plan: She is clinically stable Transfer to [facility] with Tele Routine AM Labs Dietary consult for weight management A1C, Lipid panel, TFT- all normal Accu-check in AM per patient Continue PT/OT IS as directed SW/CM for d/c planning Code status:1 Possible d/c in AM
[2017-08-02] MEDS ORDERED: metFORMIN 500 MG Tab PO SCH ×2 (07:00→09:00)
--- NOTE | 2017-08-02 08:10 | CR ---
Chest: Portable view of the chest was obtained. Comparison: No previous study. Heart size and mediastinum are normal. Lungs show mild left basilar atelectasis. Lungs otherwise are clear. Bony structures are grossly intact. Impression: 1. Slight left basilar atelectasis. Nothing acute is appreciated on portable chest x-ray. Diagnostic code #2
[2017-08-02] MEDS ORDERED: Alogliptin 12.5 MG TABLET PO SCH (09:00)
[2017-08-02] MEDS ORDERED: Enoxaparin 60 MG/0.6 ML Syringe SUBCUT SCH (09:00)
[2017-08-02] MEDS ORDERED: GARLIC 1000 MG PO SCH (09:00)
[2017-08-02] MEDS ORDERED: Warfarin Sliding Scale PO SCH (09:00)
[2017-08-02] MEDS ORDERED: FERROUS GLUCONATE PO SCH (09:00)
[2017-08-02] MEDS: Formoterol/Mometasone 200-5 MCG 8.8 GM Inhaler IH SCH ×2 (09:16→20:10)
[2017-08-02] MEDS: Furosemide 20 MG Tab PO SCH (09:24)
[2017-08-02] MEDS: Diltiazem 180 MG Cap.CD PO SCH (09:24)
[2017-08-02] MEDS: Ascorbic Acid 500 MG Tab PO SCH (09:24)
[2017-08-02] MEDS: Cyanocobalamin (Vitamin B12) 1,000 MCG Tab PO SCH (09:24)
[2017-08-02] MEDS: Alogliptin 12.5 MG TABLET PO SCH ×2 (09:24→20:44)
[2017-08-02] MEDS: Calcium Carbonate 600 MG Tab PO SCH (09:25)
[2017-08-02] MEDS: Montelukast 10 MG Tab PO SCH (09:25)
[2017-08-02] MEDS: Loratadine 10 MG Tab PO SCH (09:25)
[2017-08-02] MEDS: Vitamin B Complex With Vitamin C Cap PO SCH (09:25)
[2017-08-02] MEDS: Fish Oil/Omega-3 Fatty Acids 1 Gm Cap PO SCH (09:25)
[2017-08-02] MEDS: Multivitamins,Therapeutic Tab PO SCH (09:25)
[2017-08-02] MEDS: Pantoprazole 40 MG Vial IV SCH ×2 (09:26→20:48)
[2017-08-02] MEDS: CROMOLYN SODIUM EYEBOTH SCH ×2 (12:52→20:50)
[2017-08-02] MEDS ORDERED: Ferrous Sulfate 325 MG Tab PO SCH ×2 (13:19→13:21)
--- NOTE | 2017-08-02 13:19 | NM ---
Biliary HIDA scan Technique: 3.8 mCi technetium 99m mebrofenin was given intravenously. Scintigraphic imaging then obtained over the upper abdomen. Findings: Contrast excretion seen from the intrahepatic biliary ducts into the CHD and CBD as well as bowel activity seen. No extravasation of any activity is seen outside the biliary tree. No gallbladder activity is seen compatible with prior cholecystectomy. Impression: 1. Normal biliary HIDA scan. Diagnostic code #1
[2017-08-02] MEDS ORDERED: Ferrous Sulfate 140 MG Tab PO SCH (17:00)
[2017-08-02] MEDS: Acetaminophen/HYDROcodone 325-5 MG Tab PO PRN (17:43)
[2017-08-02] MEDS ORDERED: Warfarin 5 MG Tab PO SCH ×2 (18:00)
[2017-08-02] MEDS ORDERED: Warfarin 5 MG Tab PO ONE (19:15)
[2017-08-02] MEDS: Cefotaxime 2 GM in Sodium Chloride 0.9% 50 ML IV SCH (19:29)
[2017-08-02] MEDS: Rivaroxaban 10 MG Tab PO SCH (20:45)
[2017-08-02] MEDS ORDERED: Simvastatin 20 MG Tab PO SCH (21:00)
[2017-08-02] MEDS ORDERED: Zolpidem 5 MG Tab PO SCH (21:00)
[2017-08-02] MEDS ORDERED: traZODone 50 MG Tab PO SCH (21:00)
[2017-08-03] MEDS: Formoterol/Mometasone 200-5 MCG 8.8 GM Inhaler IH SCH (05:20)
[2017-08-03] MEDS: Cefotaxime 2 GM in Sodium Chloride 0.9% 50 ML IV SCH (06:31)
[2017-08-03] MEDS: Calcium Carbonate 600 MG Tab PO SCH (08:13)
[2017-08-03] MEDS: Diltiazem 180 MG Cap.CD PO SCH (08:13)
[2017-08-03] MEDS: Alogliptin 12.5 MG TABLET PO SCH (08:14)
[2017-08-03] MEDS: Multivitamins,Therapeutic Tab PO SCH (08:14)
[2017-08-03] MEDS: Vitamin B Complex With Vitamin C Cap PO SCH (08:15)
[2017-08-03] MEDS: Fish Oil/Omega-3 Fatty Acids 1 Gm Cap PO SCH (08:15)
[2017-08-03] MEDS: Montelukast 10 MG Tab PO SCH (08:16)
[2017-08-03] MEDS: Ascorbic Acid 500 MG Tab PO SCH (08:16)
[2017-08-03] MEDS: Furosemide 20 MG Tab PO SCH (08:17)
[2017-08-03] MEDS: Loratadine 10 MG Tab PO SCH (08:18)
[2017-08-03] MEDS: Pantoprazole 40 MG Vial IV SCH (08:23)
[2017-08-03] MEDS: Cyanocobalamin (Vitamin B12) 1,000 MCG Tab PO SCH (08:31)
--- NOTE | 2017-08-03 08:39 | PCM.DCSUM1 ---
Discharge Summary - Hospital Course Brief History: This is a 57 yo white female with past medical hx/o impaired vision, hyperlipidemia, asthma, type 2 diabetes, and insomnia, presented to emergency department w/ abdominal pain after undergoing laparoscopic cholecystectomy POD #1 and was found with irregular and fast heart rate in the 150s. She received 10 mg Cardizem IV bolus and was immediately put on Cardizem drip before she was sent to the unit for further management. Her initial workup in the emergency department shows CBC remarkable for WBC of 17.46, neutrophils of 90%,and lymphocytes of 8%. Her chemistry is remarkable for glucose of 156, GGT of 166, AST of 137, Alkaline phosphatase of 135, CKMB of 5.7 and, pro-BNP of 201. Chest x-ray shows slight left basilar atelectasis. Her abdominal/pelvis CT scan report reads slight increased density within the gallbladder bed which is felt to be related to previous surgery. Subcutaneous air is seen within the abdominal wall fat also found to be postsurgical. Slightly distended bladder. Nothing acute is seen. Patient is being admitted for medical management of atrial fibrillation with RVR. She is full code. - Discharge Data Discharge Date: 08/03/17 Discharge Disposition: Home, Self-Care 01 Condition: Good - Discharge Diagnosis/Problem(s) (1) New onset atrial fibrillation SNOMED Code(s): 81320196 ICD Code: I48.91 - UNSPECIFIED ATRIAL FIBRILLATION Status: Acute (2) S/P laparoscopic cholecystectomy SNOMED Code(s): 033304664, 21283512, 305971245 ICD Code: Z90.49 - ACQUIRED ABSENCE OF OTHER SPECIFIED PARTS OF DIGESTIVE TRACT Status: Acute (3) Postoperative abdominal pain SNOMED Code(s): 20822695 ICD Code: R10.9 - UNSPECIFIED ABDOMINAL PAIN; G89.18 - OTHER ACUTE POSTPROCEDURAL PAIN Status: Acute - Patient Summary/Data Operative Procedure(s) Performed: None Complications: None Consults: Consultations 08/01/17 21:19 Consult to Case Management [CONS] Routine Consult to Shallot Packer [CONS] Routine 08/01/17 21:51 Consult to Physician [CONS] Routine 08/01/17 23:23 Consult to Dietary [Consult to Paint Formulator] [CONS] Routine Consult to Occupational Therapy [OT Evaluation and Treatment] [CONS] Routine PT Evaluation and Treatment [CONS] Routine Labs Pending at D/C: None Recommended Follow-up Testing/Procedures: None Planned Operative Procedure(s) after DC: None Hospital Course: Patient was primarily admitted for new onset of atrial fibrillation which we felt stress induced in etiology. Patient recently underwent lap cholecystectomy and developed severe diffused abdominal so she came in to the emergency department for further evaluation. Her Abdominal/Pelvis CT scan showed post operative changes. However while in ED, she was found with irregular and fast heart rate (A-fib) as high as 150s which warranted her admission for medical treatment. Patient received initial rate control medical medication and immediately put on Cardizem drip before she was sent to the unit for further treatment. In the unit, she and were given options for stroke prophylaxis and they selected novel anticoagulation for convenience. The following morning after admission, she was taken off cardizem drip after she converted to sinus rhythm. At that point, she was switched to 180 mg po daily. She tolerated it well and able to maintain controlled heart rates in the 70s-80s. Dr. Abbott was consulted mainly for her abdominal pain and post operative care. He did order HIDA scan for her but result was benign. Her hospital course was uncomplicated and the rest of her chronic medical illness remained stable during this admission. Patient was stable upon discharge. She was advised to take all new medications as directed and to continue post-operative care instructions. She was further advised to call or follow up with her PCP for any questions or concerns after discharge. And most importantly, she was advised to come back or seek immediate care should her symptom persists or gets worse. The patient and her at bedside, expressed understanding and in agreement with the plan as discussed above. All questions were answered. - Patient Instructions Diet: Heart Healthy Diet, Usual Diet as Tolerated, Diabetic Diet Activity: As Tolerated Driving: Do Not Drive Showering/Bathing: May Shower Wound/Incision Care: Keep Operative Site/Wound Site Clean and Dry Notify Provider of: Fever, Increased Pain, Swelling and Redness, Drainage, Nausea and/or Vomiting Other/Special Instructions: - Please take all new medications as directed. - Resume all routine home medications and continue home activities as tolerated. - Follow up or call your family doctor for any questions or concerns after discharge. - Come back or seek immediate care should your symptoms persist or get worse - Discharge Plan Prescriptions/Med Rec: Diltiazem HCl [Cardizem Cd] 180 mg PO DAILY #30 cap.er.24h Rivaroxaban [Xarelto] 20 mg PO ASDIRECTED #30 tablet Home Medications: Home Meds Albuterol [Ventolin HFA] 1 - 2 puff INH Q4H PRN 07/30/17 [History] Ascorbic Acid [Vitamin C] 500 mg PO DAILY 07/30/17 [History] Budesonide/Formoterol Fumarate [Symbicort 160-4.5 Mcg Inhaler] 2 puff INH BID [History] Calcium Carbonate [Calcium] 600 mg PO DAILY 07/30/17 [History] Cromolyn Sodium 1 drop EYEBOTH BID 07/30/17 [History] Cyanocobalamin (Vitamin B-12) [Vitamin B-12] 2,500 mcg PO DAILY 07/30/17 [ History] Cyclobenzaprine [Flexeril] 10 mg PO TID PRN 07/30/17 [History] Fluticasone Propionate [Flonase] 1 spray NASBOTH DAILY 07/30/17 [History] Furosemide [Lasix] 20 mg PO DAILY 07/30/17 [History] Garlic [Garlic Oil] 1,000 mg PO DAILY 07/30/17 [History] Loratadine [Claritin] 10 mg PO DAILY 07/30/17 [History] Montelukast [Singulair] 10 mg PO DAILY 07/30/17 [History] Multivitamin [Daily Bennie] 1 tab PO DAILY 07/30/17 [History] [place]-3/DHA/Epa/Fish Oil [Fish Oil 1,000 mg Softgel] 1 cap PO DAILY 07/30/17 [ History] Vitamin B Complex [B Complex] 1 tab PO DAILY 07/30/17 [History] Zolpidem Tartrate [Ambien] 5 mg PO BEDTIME 07/30/17 [History] atorvaSTATin [Lipitor] 20 mg PO BEDTIME 07/30/17 [History] sitaGLIPtin Phos/Metformin HCl [Janumet 50-1,000 MG] 1 tab PO BID 07/30/17 [ History] traZODone HCl [Trazodone HCl] 50 mg PO BEDTIME 07/30/17 [History] Diltiazem HCl [Cardizem Cd] 180 mg PO DAILY #30 cap.er.24h 08/02/17 [Rx] Ferrous Sulfate 162.5 mg PO DAILY 08/02/17 [History] Rivaroxaban [Xarelto] 20 mg PO ASDIRECTED #30 tablet 08/02/17 [Rx] Patient Handouts: Rivaroxaban oral tablets, Pain Relief Preoperatively and Postoperatively, Atrial Fibrillation, Qnjh-[id number] Referrals: Eva Morrison, TUMBLER OPERATOR [Primary Care Provider] - 08/14/17 12:30 pm (Please see your primary care provider Eva Morrison for hospital stay follow-up on August 14 @ 12:30pm check in. ) - Discharge Summary/Plan Comment DC Time >30 min.: Yes (45 mins) Discharge Summary/Plan Comment: Discharge to Home - General Info Date of Service: 08/03/17 Admission Dx/Problem (Free Text: Admission Diagnosis/Problem Admission Diagnosis/Problem Atrial fibrillation with rapid ventricular response Subjective Update: Follow Up Functional Status: Reports: Pain Controlled, Tolerating Diet, Ambulating, Urinating. Denies: New Symptoms - Review of Systems General: Denies: Fever, Weakness, Fatigue, Malaise, Chills HEENT: Reports: No Symptoms Pulmonary: Denies: Shortness of Breath, Pleuritic Chest Pain, Cough, Wheezing Cardiovascular: Denies: Chest Pain, Palpitations, Dyspnea on Exertion, Edema, Lightheadedness Gastrointestinal: Reports: Flatus. Denies: Abdominal Pain, Decreased Appetite, Diarrhea, Nausea, Vomiting Genitourinary: Reports: No Symptoms Musculoskeletal: Reports: No Symptoms Skin: Denies: Cyanosis, Jaundice, Mottled, Pallor, Diaphoresis, Pruritis, Rash Neurological: Denies: Confusion, Difficulty Walking, Weakness, Gait Disturbance Psychiatric: Denies: Depression, Anxiety, Agitation, Hallucinations Systems Review Comment: No significant overnight or acute issues. She feels good this morning and ready to go home. She has no new complaints. - Patient Data Vitals - Most Recent: Last Vital Signs Temp 37.3 C 08/03/17 07:38 Pulse 71 08/03/17 07:38 Resp 18 08/03/17 07:38 BP 147/91 H 08/03/17 07:38 Pulse Ox 93 L 08/03/17 07:38 Weight - Most Recent: 109.86 kg I&O - Last 24 hours: Intake & Output 08/02/17 08/03/17 08/03/17 22:59 06:59 14:59 Intake Total 460 600 Output Total 600 Balance -140 600 Imaging Impressions - Last 24 hrs: 2D echo report 08/02/2017: LVEF 60-65%. NRWMA. Normal RV Systolic Function Lab Results - Last 24 hrs: Laboratory Results - last 24 hr 08/03/17 08/03/17 Range/Units 05:40 06:40 PT 14.6 H (9.5-12.1) SECONDS INR 1.35 POC Glucose 134 H (70-105) mg/dL Med Orders - Current: Current Medications Acetaminophen (Tylenol) 650 mg PO Q4H PRN PRN Reason: Pain (Mild 1-3)/fever Hydrocodone Bitart/Acetaminophen ([place] 325-5 Mg) 1 tab PO Q4H PRN PRN Reason: Pain (moderate 4-6) Last Admin: 08/02/17 17:43 Dose: 1 tab Albuterol (Proventil Hfa) 1 - 2 gm INH Q4H PRN PRN Reason: asthma Alogliptin Benzoate (Alogliptin) 12.5 mg PO BID [facility] Last Admin: 08/03/17 08:14 Dose: 12.5 mg Ascorbic Acid (Vitamin C) 500 mg PO DAILY [facility] Last Admin: 08/03/17 08:16 Dose: 500 mg Bisacodyl (Dulcolax) 5 mg PO DAILY PRN PRN Reason: Constipation Calcium Carbonate/Glycine (Calcium Carbonate) 600 mg PO DAILY [facility] Last Admin: 08/03/17 08:13 Dose: 600 mg Cyanocobalamin (Vitamin B12) 2,500 mcg PO DAILY [facility] Last Admin: 08/03/17 08:31 Dose: 2,500 mcg Cyclobenzaprine HCl (Flexeril) 10 mg PO TID PRN PRN Reason: muscle spasms Diltiazem HCl (Cardizem Cd) 180 mg PO DAILY [facility] Last Admin: 08/03/17 08:13 Dose: 180 mg Docusate Sodium (Colace) 100 mg PO BID PRN PRN Reason: Constipation Ferrous Sulfate (Ferrous Sulfate) 162.5 mg PO DAILY [facility] Last Admin: 08/03/17 08:21 Dose: 162.5 mg Fish Oil (Fish Oil) 1 gm PO DAILY [facility] Last Admin: 08/03/17 08:15 Dose: 1 gm Flunisolide (Nasalide Nasal [place]) 0 ml NASBOTH Q12H [facility] Last Admin: 08/03/17 08:21 Dose: 1 each Furosemide (Lasix) 20 mg PO DAILY [facility] Last Admin: 08/03/17 08:17 Dose: 20 mg Hydralazine HCl (Apresoline) 20 mg IVPUSH Q4H PRN PRN Reason: Hypertension Hydromorphone HCl (Dilaudid) 0.5 mg IVPUSH Q2H PRN PRN Reason: Pain (severe 7-10) Last Admin: 08/02/17 02:24 Dose: 0.5 mg Promethazine HCl 12.5 mg/ (Sodium Chloride) 50.5 mls @ 100 mls/hr IV Q6H PRN PRN Reason: Nausea/Vomiting Loratadine (Claritin) 10 mg PO DAILY [facility] Last Admin: 08/03/17 08:18 Dose: 10 mg Lorazepam (Ativan) 2 mg IVPUSH Q4H PRN PRN Reason: Seizures Lorazepam (Ativan) 1 mg IV Q6H PRN PRN Reason: Anxiety Magnesium Sulfate (Pharmacy To Dose - Magnesium Replacement) 1 dose .XX ASDIRECTED [facility] Metoprolol Tartrate (Lopressor) 5 mg IVPUSH Q4H PRN PRN Reason: Tachycardia Mometasone Furoate/Formoterol Fumar (Dulera 200-5 Mcg) 2 puff IH BIDRT [facility] Last Admin: 08/03/17 05:20 Dose: 2 puff Montelukast Sodium (Singulair) 10 mg PO DAILY [facility] Last Admin: 08/03/17 08:16 Dose: 10 mg Multivitamins (Thera) 1 each PO DAILY [facility] Last Admin: 08/03/17 08:14 Dose: 1 each Ondansetron HCl (Zofran) 4 mg IV Q6H PRN PRN Reason: Nausea/Vomiting Pantoprazole Sodium (Protonix Iv) 40 mg IV Q12HR [facility] Last Admin: 08/03/17 08:23 Dose: 40 mg Cromolyn Sodium [ Cromolyn Sodium] 1 Drop 0 each EYEBOTH BID [facility] Last Admin: 08/02/17 20:50 Dose: Not Given Polyethylene Glycol (Miralax) 17 gm PO DAILY PRN PRN Reason: Constipation Potassium Chloride (Pharmacy To Dose - Potassium Replacement) 1 dose .XX ASDIRECTED [facility] Rivaroxaban (Xarelto) 20 mg PO PCBREAKFAST [facility] Last Admin: 08/02/17 20:45 Dose: 20 mg Senna/Docusate Sodium (Senna Plus) 1 tab PO BID PRN PRN Reason: Constipation Simvastatin (Zocor) 20 mg PO BEDTIME [facility] Last Admin: 08/02/17 20:45 Dose: 20 mg Sodium Chloride (Saline Flush) 10 ml FLUSH ONETIME PRN PRN Reason: IV FLUSH Last Admin: 08/01/17 19:05 Dose: 10 ml Sodium Chloride (Saline Flush) 10 ml FLUSH ASDIRECTED PRN PRN Reason: Keep Vein Open Trazodone HCl (Trazodone) 50 mg PO BEDTIME [facility] Last Admin: 08/02/17 20:45 Dose: 50 mg Vitamin B Complex/Vitamin C (Super B With Vitamin C) 1 cap PO DAILY [facility] Last Admin: 08/03/17 08:15 Dose: 1 cap Zolpidem Tartrate (Ambien) 5 mg PO BEDTIME [facility] Last Admin: 08/02/17 20:43 Dose: 5 mg Discontinued Medications Alogliptin Benzoate (Alogliptin) 12.5 mg PO BID [facility] Diltiazem HCl (Diltiazem) 10 mg IVPUSH ONETIME ONE Stop: 08/01/17 19:05 Last Admin: 08/01/17 19:20 Dose: 10 mg Enoxaparin Sodium (Lovenox) 120 mg SUBCUT Q12H [facility] Last Admin: 08/02/17 09:26 Dose: 120 mg Enoxaparin Sodium (Lovenox) 110 mg SUBCUT ONETIME ONE Stop: 08/01/17 22:31 Last Admin: 08/01/17 22:19 Dose: 110 mg Ferrous Sulfate (Ferrous Sulfate) 325 mg PO DAILY [facility] Ferrous Sulfate (Slow Fe) 162.5 mg PO BIDMEALS [facility] Last Admin: 08/02/17 17:44 Dose: 162.5 mg Hydromorphone HCl (Dilaudid) 1 mg IVPUSH ONETIME ONE Stop: 08/01/17 18:32 Last Admin: 08/01/17 18:38 Dose: 1 mg Dextrose/Sodium Chloride (Dextrose 5%-Normal Saline) 1,000 mls @ 150 mls/hr IV ASDIRECTED [facility] Last Admin: 08/01/17 18:37 Dose: 150 mls/hr Dextrose/Sodium Chloride (Dextrose 5%-Normal Saline) 1,000 mls @ 500 mls/hr IV ASDIRECTED [facility] Diltiazem HCl 125 mg/ Sodium (Chloride) 125 mls @ 10 mls/hr IV ASDIRECTED [facility] Cefotaxime Sodium 2 gm/ Sodium (Chloride) 50 mls @ 100 mls/hr IV ONETIME ONE Stop: 08/01/17 20:06 Last Admin: 08/01/17 20:14 Dose: 100 mls/hr Diltiazem HCl 125 mg/ Sodium (Chloride) 125 mls @ 5 mls/hr IV ASDIRECTED [facility] Last Infusion: 08/02/17 04:00 Dose: 10 mg/hr, 10 mls/hr Magnesium Sulfate (Magnesium Sulfate 2 Gm In Water 50 Ml) 50 mls @ 25 mls/hr IV ONETIME ONE Stop: 08/01/17 23:59 Last Admin: 08/01/17 22:11 Dose: 25 mls/hr Cefotaxime Sodium 2 gm/ Sodium (Chloride) 50 mls @ 100 mls/hr IV Q12H [facility] Stop: 08/03/17 07:59 Last Admin: 08/03/17 06:31 Dose: 100 mls/hr Iopamidol (Isovue-300 (61%)) 150 ml IVPUSH ONETIME ONE Stop: 08/01/17 18:42 Last Admin: 08/01/17 19:05 Dose: 125 ml Metformin HCl (Glucophage) 1,000 mg PO BID [facility] Metformin HCl (Glucophage) 1,000 mg PO BIDMEALS [facility] Last Admin: 08/02/17 08:54 Dose: Not Given Metoclopramide HCl (Reglan) 7.5 mg IVPUSH ONETIME ONE Stop: 08/01/17 18:32 Last Admin: 08/01/17 18:37 Dose: 7.5 mg Non-Formulary Medication (Garlic [Garlic Oil]) 1,000 mg PO DAILY [facility] Ferrous Gluconate [ (Iron] 0.5 Tab) 0 each PO DAILY [facility] Last Admin: 08/02/17 12:52 Dose: Not Given Simvastatin (Zocor) 20 mg PO ONETIME ONE Stop: 08/01/17 22:01 Last Admin: 08/01/17 22:11 Dose: 20 mg Trazodone HCl (Trazodone) 50 mg PO ONETIME ONE Stop: 08/01/17 21:41 Last Admin: 08/01/17 22:11 Dose: 50 mg Warfarin Sodium (Pharmacy To Dose - Warfarin) 1 dose .XX ASDIRECTED [facility] Warfarin Sodium (Coumadin Sliding Scale) 1 each PO DAILY [facility] Warfarin Sodium (Coumadin) 5 mg PO 1800 [facility] Stop: 08/02/17 18:01 Last Admin: 08/02/17 19:19 Dose: Not Given Warfarin Sodium (Coumadin) 5 mg PO 1800 [facility] Stop: 08/02/17 18:01 Last Admin: 08/02/17 19:20 Dose: Not Given Warfarin Sodium (Coumadin) 5 mg PO ONETIME ONE Stop: 08/02/17 19:16 Last Admin: 08/02/17 19:28 Dose: 5 mg Zolpidem Tartrate (Ambien) 5 mg PO ONETIME ONE Stop: 08/01/17 21:41 Last Admin: 08/01/17 22:10 Dose: 5 mg - Exam General: Reports: Alert, Oriented, Cooperative, No Acute Distress HEENT: Reports: Pupils Equal, Pupils Reactive, EOMI, Mucous Membr. Moist/[place]: Reports: Supple, Trachea Midline, No JVD, No Thyromegaly Lungs: Reports: Clear to Auscultation, Normal Respiratory Effort, Decreased Breath Sounds Cardiovascular: Reports: Regular Rate, Regular Rhythm, No Murmurs, Irregular Rhythm GI/Abdominal Exam: Normal Bowel Sounds, Soft, Non-Tender, No Organomegaly, No Distention, No Abnormal Bruit, No Mass (Female) Exam: Deferred Rectal (Female) Exam: Deferred Back Exam: Reports: Normal Inspection, Decreased Range of Motion Extremities: Normal Inspection, Normal Range of Motion, Non-Tender, No Pedal Edema, Normal Capillary Refill Skin: Reports: Warm, Dry, Intact Neurological: Reports: No New Focal Deficit Psy/Mental Status: Reports: Alert, Normal Affect, Normal Mood
[2017-08-03] MEDS: Rivaroxaban 10 MG Tab PO SCH (10:04)
[2017-08-03] MEDS: CROMOLYN SODIUM EYEBOTH SCH (12:48)
== END 2017-08-03 10:30 | disposition home or self-care (01) | DRG 309 ==
LOC: JD.ED 17:55 → JD.ICU 20:09 → JD.MS 08-02 17:21
PROVIDERS: ADMIT Internal Medicine; ATTEND Internal Medicine
DX: I48.91 Unspecified atrial fibrillation (principal); Z68.42 Body mass index [BMI] 45.0-49.9, adult; G89.18 Other acute postprocedural pain; E78.00 Pure hypercholesterolemia, unspecified; H54.7 Unspecified visual loss; J45.909 Unspecified asthma, uncomplicated; G47.30 Sleep apnea, unspecified; K76.9 Liver disease, unspecified; G47.00 Insomnia, unspecified; Z98.84 Bariatric surgery status; E11.9 Type 2 diabetes mellitus without complications; Z87.891 Personal history of nicotine dependence; Z88.6 Allergy status to analgesic agent; Z79.84 Long term (current) use of oral hypoglycemic drugs; R53.1 Weakness; R10.9 Unspecified abdominal pain; R11.2 Nausea with vomiting, unspecified; R14.0 Abdominal distension (gaseous); R53.81 Other malaise; R06.02 Shortness of breath; R53.83 Other fatigue; Z79.899 Other long term (current) drug therapy; E78.5 Hyperlipidemia, unspecified; E66.9 Obesity, unspecified; Z90.49 Acquired absence of other specified parts of digestive tract; E11.65 Type 2 diabetes mellitus with hyperglycemia; E88.81 Metabolic syndrome and other insulin resistance
CPT/HCPCS: 36415; 71045; 74177; 80053; 82553; 82977; 83690; 83735; 83880; 84439; 84443; 84484; 85007; 85027; 93005; 96361; 96374; 96375; 96376; 99285; J1170; J2765; J3490 ×2; J7030; J7042; J7050; Q9967; 78226; 78226-26; 80048; 80061; 82044; 82962; 83036; 85025; 85610; 93306; 94640; 94760; 97161-GP; 97165-GO; A9270; A9270-GY; A9537; C9113; J0698; J1650; J3475

== ENCOUNTER 2017-08-19 13:33 | Emergency (ER) | payer MEDICARE, MEDICAID ==
[2017-08-19] MEDS ORDERED: HYDROmorphone 0.5 MG/0.5 ML SYRINGE IM ONE (14:11)
--- NOTE | 2017-08-19 14:17 | EDM.PDOC ---
<CiaraSveta haddad - Last Filed: 08/19/17 14:18> ED HPI GENERAL MEDICAL PROBLEM - General Chief Complaint: Upper Extremity Injury/Pain Stated Complaint: RT ARM INJURY Time Seen by Provider: 08/19/17 13:55 Source of Information: Reports: Patient, Significant Other History Limitations: Reports: No Limitations - History of Present Illness INITIAL COMMENTS - FREE TEXT/NARRATIVE: Pt reports tripping on a rug and falling onto her R shoulder and arm approximately 2 hours ago. She is with her significant answer who answers the majority of questions for her. He reports witnessing the fall and they both deny any head trauma or LOC. She is on Xarelto daily for new onset of Afib in the past month. She denies any previous trauma or surgeries to that arm or shoulder. She reports 10/10 pain and refuses to move the R arm, hand or shoulder. Onset: Sudden Onset Date: 08/19/17 Duration: Hour(s): (2 hours ago) Location: Reports: Upper Extremity, Right Quality: Reports: Sharp, Stabbing, Throbbing Severity: Moderate Improves with: Reports: None Worsens with: Reports: Movement Context: Reports: Trauma (fall from standing onto R arm and shoulder) Associated Symptoms: Reports: No Other Symptoms Treatments RIB KNITTER: Reports: Other (see below) Other Treatments RIB KNITTER: none Right Arm Pain Score (Numeric/FACES): 10 - Related Data Allergies Allergy/AdvReac Type Severity Reaction Status Date / Time codeine Allergy Rash Verified 08/01/17 18:13 Home Meds: Home Meds Albuterol [Ventolin HFA] 1 - 2 puff INH Q4H PRN 07/30/17 [History] Ascorbic Acid [Vitamin C] 500 mg PO DAILY 07/30/17 [History] Budesonide/Formoterol Fumarate [Symbicort 160-4.5 Mcg Inhaler] 2 puff INH BID [History] Calcium Carbonate [Calcium] 600 mg PO DAILY 07/30/17 [History] Cromolyn Sodium 1 drop EYEBOTH BID 07/30/17 [History] Cyanocobalamin (Vitamin B-12) [Vitamin B-12] 2,500 mcg PO DAILY 07/30/17 [ History] Cyclobenzaprine [Flexeril] 10 mg PO TID PRN 07/30/17 [History] Fluticasone Propionate [Flonase] 1 spray NASBOTH DAILY 07/30/17 [History] Furosemide [Lasix] 20 mg PO DAILY 07/30/17 [History] Garlic [Garlic Oil] 1,000 mg PO DAILY 07/30/17 [History] Loratadine [Claritin] 10 mg PO DAILY 07/30/17 [History] Montelukast [Singulair] 10 mg PO DAILY 07/30/17 [History] Multivitamin [Daily Bennie] 1 tab PO DAILY 07/30/17 [History] [place]-3/DHA/Epa/Fish Oil [Fish Oil 1,000 mg Softgel] 1 cap PO DAILY 07/30/17 [ History] Vitamin B Complex [B Complex] 1 tab PO DAILY 07/30/17 [History] Zolpidem Tartrate [Ambien] 5 mg PO BEDTIME 07/30/17 [History] atorvaSTATin [Lipitor] 20 mg PO BEDTIME 07/30/17 [History] sitaGLIPtin Phos/Metformin HCl [Janumet 50-1,000 MG] 1 tab PO BID 07/30/17 [ History] traZODone HCl [Trazodone HCl] 50 mg PO BEDTIME 07/30/17 [History] Diltiazem HCl [Cardizem Cd] 180 mg PO DAILY #30 cap.er.24h 08/02/17 [Rx] Ferrous Sulfate 162.5 mg PO DAILY 08/02/17 [History] Rivaroxaban [Xarelto] 20 mg PO ASDIRECTED #30 tablet 08/02/17 [Rx] Hydrocodone/Acetaminophen [Hydrocodon-Acetaminophen 5-325] 1 - 2 each PO Q6HR PRN #20 tablet 08/19/17 [Rx] Past Medical History HEENT History: Reports: Impaired Vision, Other (See Below) Other HEENT History: wears glasses, dentures Cardiovascular History: Reports: Afib, High Cholesterol Respiratory History: Reports: Asthma, Sleep Apnea Gastrointestinal History: Reports: Other (See Below) Other Gastrointestinal History: liver lesion Genitourinary History: Reports: None 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) Other OB/BYN History: abnormal pap Musculoskeletal History: Reports: None Neurological History: Reports: None Psychiatric History: Reports: Other (See Below) Other Psychiatric History: insomnia Endocrine/Metabolic History: Reports: Diabetes, Type II Hematologic History: Reports: None Immunologic History: Reports: None Oncologic (Cancer) History: Reports: None Dermatologic History: Reports: None - Past Surgical History Head Surgeries/Procedures: Reports: None Respiratory Surgical History: Reports: None GI Surgical History: Reports: Bariatric Procedure, Colonoscopy, Other (See Below ) Other GI Surgeries/Procedures: bladder surgery Female Surgical History: Reports: None Endocrine Surgical History: Reports: None Neurological Surgical History: Reports: None Musculoskeletal Surgical History: Reports: None Oncologic Surgical History: Reports: None Social & Family History - Tobacco Use Smoking Status *Q: Former Smoker Used Tobacco, but Quit: Yes Month/Year Tobacco Last Used: 6 - Caffeine Use Caffeine Use: Reports: Coffee - Recreational Drug Use Recreational Drug Use: No - Living Situation & Occupation Living situation: Reports: Single Occupation: Unemployed Review of Systems - Review of Systems Review Of Systems: See Below Constitutional: Reports: No Symptoms Eyes: Reports: No Symptoms Ears: Reports: No Symptoms Respiratory: Reports: No Symptoms. Denies: Shortness of Breath, Pleuritic Chest Pain Cardiovascular: Reports: No Symptoms GI/Abdominal: Reports: No Symptoms Musculoskeletal: Reports: Shoulder Pain (right), Arm Pain (right), Hand Pain ( Right), Joint Pain (R shoulder, elbow, wrist pain. Deneis hip, knee or ankle pain). Denies: Back Pain, Leg Pain, Foot Pain Skin: Reports: No Symptoms Neurological: Reports: No Symptoms. Denies: Confusion, Dizziness, Headache, Numbness, Paresthesia ED EXAM, GENERAL - Physical Exam Exam: See Below General Appearance: Alert, WD/WN, Anxious, Moderate Distress Ears: Normal External Exam, Hearing Grossly Normal Nose: Normal Inspection Head: Atraumatic, Normocephalic Neck: Normal Inspection, Supple, Non-Tender, Full Range of Motion Respiratory/Chest: No Respiratory Distress, Lungs Clear, Normal Breath Sounds, No Accessory Muscle Use, Chest Non-Tender Cardiovascular: Normal Peripheral Pulses, Regular Rate, Rhythm, No Gallop, No Murmur, No Rub GI/Abdominal: Soft, Non-Tender, Pelvis Stable Extremities: Normal Capillary Refill, Limited Range of Motion (R upper extremity ), Other (cannot move R extremity secondary to pain, tender to palpation from shoulder to fingers). No: Pallor Neurological: Alert, Oriented Psychiatric: Anxious, Tearful Skin Exam: Warm, Dry, Intact Course - Vital Signs Last Recorded V/S: Last Vital Signs Temp 98.3 F 08/19/17 13:51 Pulse 73 08/19/17 13:51 Resp 20 08/19/17 13:51 BP 144/80 H 08/19/17 13:51 Pulse Ox 98 08/19/17 13:51 - Orders/Labs/Meds Orders: Active Orders 24 hr Category Date Time Status Forearm 2V Rt [CR] Stat Exams 08/19/17 14:12 Taken Hand 2V Rt [CR] Stat Exams 08/19/17 14:12 Taken Humerus Rt [CR] Stat Exams 08/19/17 14:11 Taken Meds: Medications Discontinued Medications Generic Name Dose Route Start Last Admin Trade Name Freq PRN Reason Stop Dose Admin Hydromorphone HCl 1 mg 08/19/17 14:11 08/19/17 14:22 Dilaudid IM 08/19/17 14:12 1 mg ONETIME ONE Administration Departure - Departure Disposition: Home, Self-Care 01 Clinical Impression: Proximal humerus fracture Qualifiers: Encounter type: initial encounter Fracture type: closed Fracture morphology: other fracture Fracture alignment: nondisplaced Laterality: right Qualified Code (s): S42.294A - Other nondisplaced fracture of upper end of right humerus, initial encounter for closed fracture - Discharge Information Prescriptions: Hydrocodone/Acetaminophen [Hydrocodon-Acetaminophen 5-325] 1 - 2 each PO Q6HR PRN #20 tablet PRN Reason: Pain Referrals: Eva Morrison NP [Primary Care Provider] - Lauri Canales MD [Physician] - 1 Week Forms: ED Department Discharge Additional Instructions: Ice your shoulder for 15 minutes every other hour while awake for 2 days. Wear the shoulder immobilizer. Take motrin or tylenol for pain. You may also use the hydrocodone for pain. Follow up with Dr Canales in 1 week. Please return if you are worse. - My Orders Last 24 Hours: My Active Orders 08/19/17 14:11 Humerus Rt [CR] Stat 08/19/17 14:12 Forearm 2V Rt [CR] Stat Hand 2V Rt [CR] Stat - Assessment/Plan Last 24 Hours: My Active Orders 08/19/17 14:11 Humerus Rt [CR] Stat 08/19/17 14:12 Forearm 2V Rt [CR] Stat Hand 2V Rt [CR] Stat <Rafa Medina - Last Filed: 08/19/17 15:43> Course - Re-Assessments/Exams Free Text/Narrative Re-Assessment/Exam: 08/19/17 15:37 I ordered dilaudid 1mg IM. Her x-ray shows proximal humerus fracture. I will get her in a shoulder immobilizer and follow up with Dr Canales. Departure - Departure Time of Disposition: 15:40 Condition: Good
--- NOTE | 2017-08-20 13:12 | CR ---
Right forearm: Two views of right forearm were obtained. Comparison: No prior forearm exam. No fracture or other bony abnormality is seen. Mild vascular calcification is seen. Impression: 1. Incidental findings. Nothing acute is seen on right forearm study. Diagnostic code #2
--- NOTE | 2017-08-20 13:12 | CR ---
Right hand: Two views of the right hand were obtained. Comparison: No prior hand exam. Joint space narrowing is noted within the DIP and PIP joints. No acute fracture or other bony abnormality is identified. Impression: 1. Diffuse joint space narrowing within the DIP and PIP joints. 2. Nothing acute is appreciated on two-view right hand exam. Diagnostic code #2
--- NOTE | 2017-08-20 13:12 | CR ---
Right humerus: Two views of the right humerus were obtained. Comparison: No previous study. Fracture is identified within the surgical neck as well as probable fracture within the base of the greater tuberosity. Alignment remains close to anatomic. No additional fracture or other abnormality is seen. Impression: 1. Proximal humeral fracture as described above. Diagnostic code #3
== END 2017-08-19 16:00 | disposition home or self-care (01) ==
LOC: JD.ED 13:33
DX: S42.214A Unspecified nondisplaced fracture of surgical neck of right humerus, initial encounter for closed fracture (principal); E11.9 Type 2 diabetes mellitus without complications; I48.91 Unspecified atrial fibrillation; E78.00 Pure hypercholesterolemia, unspecified; Z79.01 Long term (current) use of anticoagulants; Z79.899 Other long term (current) drug therapy; Z88.5 Allergy status to narcotic agent; Z87.891 Personal history of nicotine dependence; W19.XXXA Unspecified fall, initial encounter
CPT/HCPCS: 73060; 73090; 73120; 96372; 99284; J1170; 99283

== ENCOUNTER 2017-09-16 06:14 | Emergency (ER) | payer MEDICARE, MEDICAID ==
--- NOTE | 2017-09-16 07:19 | EDM.PDOC ---
ED HPI GENERAL MEDICAL PROBLEM - General Chief Complaint: Eye Problems Stated Complaint: DILATED LEFT EYE Time Seen by Provider: 09/16/17 06:50 Source of Information: Reports: Patient, Significant Other (Boyfriend) History Limitations: Reports: No Limitations - History of Present Illness INITIAL COMMENTS - FREE TEXT/NARRATIVE: The patient's boyfriend states that he noticed around 05:30 this morning that the patient's left pupil was mildly dilated. He had just returned from work, last seeing the patient around 15:30 yesterday afternoon, stating that the pupil was normal at that time. The patient has no other symptoms, such as headache, blurry vision, nausea, tingling, numbness, or weakness. No recent head or eye trauma. No history of seizures. The patient reports that she has, among other conditions, allergic rhinitis, for which she takes oral Benadryl and a prescription eyedrop. She does not know the name of the eyedrop, but states that it is for "allergies". No prior similar symptoms. The patient's PCP is Dr. Minnie Morrison. - Related Data Allergies Allergy/AdvReac Type Severity Reaction Status Date / Time codeine Allergy Rash Verified 09/16/17 06:22 Home Meds: Home Meds Albuterol [Ventolin HFA] 1 - 2 puff INH Q4H PRN 07/30/17 [History] Ascorbic Acid [Vitamin C] 500 mg PO DAILY 07/30/17 [History] Budesonide/Formoterol Fumarate [Symbicort 160-4.5 Mcg Inhaler] 2 puff INH BID [History] Calcium Carbonate [Calcium] 600 mg PO DAILY 07/30/17 [History] Cromolyn Sodium 1 drop EYEBOTH BID 07/30/17 [History] Cyanocobalamin (Vitamin B-12) [Vitamin B-12] 2,500 mcg PO DAILY 07/30/17 [ History] Cyclobenzaprine [Flexeril] 10 mg PO TID PRN 07/30/17 [History] Fluticasone Propionate [Flonase] 1 spray NASBOTH DAILY 07/30/17 [History] Furosemide [Lasix] 20 mg PO DAILY 07/30/17 [History] Garlic [Garlic Oil] 1,000 mg PO DAILY 07/30/17 [History] Loratadine [Claritin] 10 mg PO DAILY 07/30/17 [History] Montelukast [Singulair] 10 mg PO DAILY 07/30/17 [History] Multivitamin [Daily Bennie] 1 tab PO DAILY 07/30/17 [History] [place]-3/DHA/Epa/Fish Oil [Fish Oil 1,000 mg Softgel] 1 cap PO DAILY 07/30/17 [ History] Vitamin B Complex [B Complex] 1 tab PO DAILY 07/30/17 [History] Zolpidem Tartrate [Ambien] 5 mg PO BEDTIME 07/30/17 [History] atorvaSTATin [Lipitor] 20 mg PO BEDTIME 07/30/17 [History] sitaGLIPtin Phos/Metformin HCl [Janumet 50-1,000 MG] 1 tab PO BID 07/30/17 [ History] traZODone HCl [Trazodone HCl] 50 mg PO BEDTIME 07/30/17 [History] Diltiazem HCl [Cardizem Cd] 180 mg PO DAILY #30 cap.er.24h 08/02/17 [Rx] Ferrous Sulfate 162.5 mg PO DAILY 08/02/17 [History] Rivaroxaban [Xarelto] 20 mg PO ASDIRECTED #30 tablet 08/02/17 [Rx] Hydrocodone/Acetaminophen [Hydrocodon-Acetaminophen 5-325] 1 - 2 each PO Q6HR PRN #20 tablet 08/19/17 [Rx] Past Medical History HEENT History: Reports: Allergic Rhinitis, Impaired Vision, Other (See Below) Other HEENT History: wears glasses, dentures Cardiovascular History: Reports: Afib (paroxysmal), High Cholesterol, Hypertension Respiratory History: Reports: Asthma (suspected, not confirmed), Sleep Apnea ( nightly CPAP) Gastrointestinal History: Reports: Colon Polyp (benign) Genitourinary History: Reports: Urinary Incontinence (mild stress incontinence) Psychiatric History: Reports: Other (See Below) (Insomnia) Endocrine/Metabolic History: Reports: Diabetes, Type II, Obesity/BMI 30+ - Past Surgical History HEENT Surgical History: Reports: Oral Surgery ([place] teeth extraction) GI Surgical History: Reports: Bariatric Procedure (Gastric bypass around 1999), Cholecystectomy (07/31/2017), Colonoscopy Musculoskeletal Surgical History: Reports: Other (See Below) (Left fifth finger tendon repair) Social & Family History - Tobacco Use Smoking Status *Q: Former Smoker Years of Tobacco use: 34 Packs/Tins Daily: 1.5 Month/Year Tobacco Last Used: Quit 2011 - Caffeine Use Caffeine Use: Reports: Coffee - Alcohol Use Alcohol Use History: No - Recreational Drug Use Recreational Drug Use: No - Living Situation & Occupation Living situation: Reports: Single, with Significant Other (Boyfriend) Occupation: Unemployed ED ROS GENERAL - Review of Systems Review Of Systems: ROS reveals no pertinent complaints other than HPI. ED EXAM GENERAL W FULL EYE - Physical Exam Exam: See Below Exam Limited By: No Limitations General Appearance: Alert, WD/WN, No Apparent Distress Eye Exam: Left Eye: Abnormal Pupil (Mild mydriasis compared to the right, but brisk pupillary reflex), Bilateral Eye: EOMI, Normal Inspection, PERRL Eyelids: Bilateral: Normal Appearance Conjunctiva & Sclera: Bilateral: Normal Appearance Cornea Exam: Bilateral: Normal Appearance Extraocular Movements: Bilateral: Intact Pupils: Normal Accommodation, Unequal, Mydriatic (left) Pupillary Size: Right: 4 mm, Left: 6 mm Pupillary Reaction: Bilateral: Brisk Course - Vital Signs Last Recorded V/S: Last Vital Signs Temp 36.6 C 09/16/17 06:19 Pulse 80 09/16/17 06:19 Resp 16 09/16/17 06:19 BP 154/65 H 09/16/17 06:19 Pulse Ox 95 09/16/17 06:19 - Re-Assessments/Exams Free Text/Narrative Re-Assessment/Exam: 09/16/17 07:14 The patient does indeed appear to have mild mydriasis, however, it is reactive even to minimal like input, indicating that this is not a significant injury to the third cranial nerve, such as would accompany a stroke or brain mass. Additionally, the patient has no other symptoms, such as headache or blurry vision,, and the mydriasis appears to be unilateral, rendering increased intracranial pressure highly unlikely. The patient uses a prescription eyedrop for allergies - likely an anticholinergic, and also takes Benadryl, which explains the patient's symptoms. Going forward, I'm recommending that the patient continue to take her usual medications, including the prescription eyedrops and Benadryl, and that she simply ignore this pupillary dilatation. If , on the other hand, the patient developed a headache, blurry vision, or any neurologic symptoms, then she needs to be reevaluated. Departure - Departure Time of Disposition: 07:17 Disposition: Home, Self-Care 01 Condition: Good Clinical Impression: Episodic mydriasis of left eye - Discharge Information Referrals: Eva Morrison NURSES ASSISTANT [Primary Care Provider] - Forms: ED Department Discharge Additional Instructions: You were seen in the emergency room for a mildly dilated left pupil. Based on your history and physical examination, your pupil is MOST LIKELY dilated because of the prescription allergy eyedrop that you take, as well as the Benadryl. The mild pupil dilatation is not harmful to you, and you do not need to stop using the allergy eyedrop or Benadryl. If you develop a headache, blurry vision, or any neurologic symptoms, such as tingling, numbness, weakness, please return to the ER for reevaluation.
== END 2017-09-16 07:30 | disposition home or self-care (01) ==
LOC: JD.ED 06:14
DX: H57.04 Mydriasis (principal); I48.91 Unspecified atrial fibrillation; E78.00 Pure hypercholesterolemia, unspecified; I10 Essential (primary) hypertension; J45.909 Unspecified asthma, uncomplicated; E11.9 Type 2 diabetes mellitus without complications; Z88.5 Allergy status to narcotic agent; Z79.899 Other long term (current) drug therapy; Z87.891 Personal history of nicotine dependence; Z79.84 Long term (current) use of oral hypoglycemic drugs
CPT/HCPCS: 99283

== ENCOUNTER 2019-10-13 04:33 | Emergency (ER) | payer MEDICARE, MEDICAID ==
--- NOTE | 2019-10-13 05:40 | EDM.PDOC ---
ED HPI GENERAL MEDICAL PROBLEM - General Chief Complaint: Lower Extremity Injury/Pain Stated Complaint: RT KNEE PAIN Time Seen by Provider: 10/13/19 05:14 Source of Information: Reports: Patient History Limitations: Reports: No Limitations - History of Present Illness INITIAL COMMENTS - FREE TEXT/NARRATIVE: Ms. Barker is a pleasant 59-year-old woman who now presents to the ED stating that she woke around 00:30 this morning with right knee pain. She is indicating pain circumferentially to the right knee. She states that her knee was just fine yesterday, and she went to bed with no knee pain. She denies suffering any sort of injury while in bed. No prior similar problems. The patient states that she took 2 tablets of full-strength aspirin around 00:30, then applied heat to the knee around 01:30. Here in the ED, the patient's initial BP is found to be mildly elevated at 149/63, otherwise, she is hemodynamically stable, afebrile, saturating 100% on room air. Other than her right knee issue, the patient denies recent fever, chills, sore throat, ear pain, nasal or sinus congestion, cough, dyspnea, chest pain, palpitations, nausea, vomiting, constipation, diarrhea, abdominal pain, urinary symptoms, recent weight gain or weight loss, recent bloody bowel movements or black bowel movements, recent joint aches, headaches, or rashes. The patient's PCP is Dr. Minnie Morrison. Her Dust Collector Attendant is Dr. Giuseppe Olson. Right Knee Pain Score (Numeric/FACES): 7 - Related Data Allergies Allergy/AdvReac Type Severity Reaction Status Date / Time codeine Allergy Severe Rash Verified 10/13/19 04:42 Home Meds: Home Meds Albuterol [Ventolin HFA] 1 - 2 puff INH Q4H PRN 07/30/17 [History] Ascorbic Acid [Vitamin C] 1,000 mg PO DAILY 07/30/17 [History] Budesonide/Formoterol Fumarate [Symbicort 160-4.5 Mcg Inhaler] 2 puff INH BID 07/30/17 [History] Cromolyn Sodium 1 drop EYEBOTH BID 07/30/17 [History] Cyclobenzaprine [Flexeril] 10 mg PO TID PRN 07/30/17 [History] Fluticasone Propionate [Flonase] 1 spray NASBOTH DAILY 07/30/17 [History] Furosemide [Lasix] 20 mg PO DAILY 07/30/17 [History] Garlic [Garlic Oil] 1,000 mg PO DAILY 07/30/17 [History] Loratadine [Claritin] 10 mg PO DAILY 07/30/17 [History] Montelukast [Singulair] 10 mg PO BEDTIME 07/30/17 [History] Multivitamin [Daily Bennie] 1 tab PO DAILY 07/30/17 [History] Vitamin B Complex [B Complex] 1,000 mg PO DAILY 07/30/17 [History] atorvaSTATin [Lipitor] 20 mg PO BEDTIME 07/30/17 [History] sitaGLIPtin Phos/Metformin HCl [Janumet 50-1,000 MG] 1 tab PO DAILY 07/30/17 [History] traZODone HCl [Trazodone HCl] 50 mg PO BEDTIME 07/30/17 [History] Ferrous Sulfate 200 mg PO DAILY 08/02/17 [History] Rivaroxaban [Xarelto] 20 mg PO ASDIRECTED #30 tablet 08/02/17 [Rx] dilTIAZem HCL [Cardizem Cd] 180 mg PO DAILY #30 cap.er.24h 08/02/17 [Rx] Aspirin [Aspir 81] 81 mg CHEW DAILY 10/13/19 [History] Past Medical History HEENT History: Reports: Allergic Rhinitis, Impaired Vision (wears glasses), Other (See Below) (Dentures) Cardiovascular History: Reports: Afib (paroxysmal), High Cholesterol, Hypertension Respiratory History: Reports: Asthma (suspected, not tested), Sleep Apnea (untreated) Gastrointestinal History: Reports: Colon Polyp Genitourinary History: Reports: Urinary Incontinence (stress incontinence) Psychiatric History: Reports: Other (See Below) (Insomnia) Endocrine/Metabolic History: Reports: Diabetes, Type II, Obesity/BMI 30+ - Past Surgical History HEENT Surgical History: Reports: Oral Surgery (wisdom teeth extraction) GI Surgical History: Reports: Bariatric Procedure (gastric bypass around 1999), Cholecystectomy (07/31/2017), Colonoscopy (x 3) Musculoskeletal Surgical History: Reports: Other (See Below) (Left 5th finger tendon repair) Social & Family History - Tobacco Use Smoking Status *Q: Former Smoker Years of Tobacco use: 34 Packs/Tins Daily: 1.5 Month/Year Tobacco Last Used: Quit 2011 - Caffeine Use Caffeine Use: Reports: Coffee - Alcohol Use Alcohol Use History: No - Recreational Drug Use Recreational Drug Use: No - Living Situation & Occupation Living situation: Reports: Single, Alone Occupation: Unemployed Review of Systems - Review of Systems Review Of Systems: Comprehensive ROS is negative, except as noted in HPI. ED EXAM, GENERAL - Physical Exam Exam: See Below Exam Limited By: Other (The patient's response to even mild palpation was grossly exxagerated, limiting the value of the exam) General Appearance: Alert, WD/WN, No Apparent Distress Extremities: Other (Both lower extremities have lipoedema, worse on the right than the left. The patient reported extreme tenderness to light palpation of the skin over the anterior distal thigh, as well as to even light palpation circumferentially to the knee, and even to the proximal leg, although there is no visible abnormality to the knee or leg. Due to the patient's body habitus, I am unable to determine if there is a joint effusion. Neurovascular status of the right lower extremity is intact.) Course - Vital Signs Last Recorded V/S: Last Vital Signs Temp 36.5 C 10/13/19 04:39 Pulse 71 10/13/19 04:39 Resp 20 10/13/19 04:39 BP 149/63 H 10/13/19 04:39 Pulse Ox 100 10/13/19 04:39 - Orders/Labs/Meds Orders: Active Orders 24 hr Category Date Time Status Knee 3V Rt [CR] Stat Exams 10/13/19 05:33 Taken - Re-Assessments/Exams Free Text/Narrative Re-Assessment/Exam: 10/13/19 05:34 As above, the patient woke around 00:30 this morning with right knee pain, despite not suffering any injury, and the knee feeling just fine when she went to bed. On examination, the patient has some soft tissue fullness to the distal right thigh, which is tender, but so is the entire circumference and remainder of the knee, including the proximal tibia. The knee joint is stable. The etiology of her pain is not immediately clear. I have ordered x-rays to evaluate. 10/13/19 06:12 4-view radiographs of the right knee appear to demonstrate some osteopenia, however, no acute normalities, such as fractures or dislocations are identified. Small osteophytes are noted off the bilateral condyles, however, the joint space appears to be preserved. Formal read per the Radiologist pending. 10/13/19 06:16 X-ray results discussed with the patient. I am unable to explain the cause of the patient's generalized knee pain. I am therefore recommending that she follow-up with Dr. Canales, to see if he can determine the cause. She may be able to see him as early as today. In the meantime, I am recommending that she take [id number] Tylenol as needed for discomfort. Because she is on Xarelto, I am advising that she not take an NSAID. Departure - Departure Time of Disposition: 06:17 Disposition: Home, Self-Care 01 Condition: Good Clinical Impression: Right knee pain - Discharge Information *PRESCRIPTION DRUG MONITORING PROGRAM REVIEWED*: Not Applicable *COPY OF PRESCRIPTION DRUG MONITORING REPORT IN PATIENT LYNN: Not Applicable Instructions: Pain Without a Known Cause Referrals: Minnie Morrison MD [Primary Care Provider] - Lauri Canales MD [Physician] - Giuseppe Olson DO [Ordering Only Provider] - Forms: ED Department Discharge Additional Instructions: You were seen in the emergency room after waking up with right knee pain, without suffering any injury to the knee. Work-up in the ER included x-rays of the right knee, which showed no acute abnormalities. The cause of your right knee pain is not known. We recommend that you take [id number] acetaminophen (Tylenol) as needed for discomfort. Because you are on Xarelto, we recommend that you NOT take any NSAIDs, such as aspirin, ibuprofen (Advil, Motrin), or naproxen (Aleve). We recommend that you follow-up with the Orthopedic Surgeon Dr. Lauri Canales. Call his office this morning to be seen at the next available appointment. If any other problems, please do not hesitate to return to the ER. Sepsis Event Note (ED) - Evaluation Sepsis Screening Result: No Definite Risk - Focused Exam Vital Signs: Vital Signs Temp Pulse Resp BP Pulse Ox 10/13/19 04:39 36.5 C 71 20 149/63 H 100 - My Orders Last 24 Hours: My Active Orders 10/13/19 05:33 Knee 3V Rt [CR] Stat - Assessment/Plan Last 24 Hours: My Active Orders 10/13/19 05:33 Knee 3V Rt [CR] Stat
--- NOTE | 2019-10-13 08:07 | CR ---
Right knee: 4 views of the right knee were obtained. Comparison: No prior knee exam. Slight osteophytes are noted off the medial and lateral joints. Slight osteophytes are noted off the patellofemoral joint. No discrete joint effusion is seen. Bony structures are osteopenic. Dystrophic calcification is seen within the subcutaneous tissues of the lateral distal thigh. No acute fracture or dislocation is seen. Impression: 1. Degenerative change and other findings. 2. Nothing acute is seen. Diagnostic code #2 This report was dictated in MDT I agree with preliminary report from [facility], finalized on 7:08 AM Central Daylight Time
== END 2019-10-13 06:27 | disposition home or self-care (01) ==
LOC: JD.ED 04:33
DX: M25.561 Pain in right knee (principal); I10 Essential (primary) hypertension; E78.00 Pure hypercholesterolemia, unspecified; I48.91 Unspecified atrial fibrillation; J45.909 Unspecified asthma, uncomplicated; E11.9 Type 2 diabetes mellitus without complications; E66.9 Obesity, unspecified; Z88.5 Allergy status to narcotic agent; Z79.899 Other long term (current) drug therapy; Z68.41 Body mass index [BMI] 40.0-44.9, adult; Z98.890 Other specified postprocedural states; Z90.49 Acquired absence of other specified parts of digestive tract; Z87.891 Personal history of nicotine dependence
CPT/HCPCS: 73562-26-RT; 73562-RT; 99282; 99283

== ENCOUNTER 2019-10-14 16:23 | Emergency (ER) | payer MEDICARE, MEDICAID ==
--- NOTE | 2019-10-14 17:08 | EDM.PDOC ---
ED HPI GENERAL MEDICAL PROBLEM - General Chief Complaint: Lower Extremity Injury/Pain Stated Complaint: PAIN IN BOTH KNEES AND ANKLES Time Seen by Provider: 10/14/19 16:44 Source of Information: Reports: Patient History Limitations: Reports: No Limitations - History of Present Illness INITIAL COMMENTS - FREE TEXT/NARRATIVE: Patient is a 59-year-old female who presents to the emergency department with complaints of bilateral knee pain. She has had no known injury to her knees. She was seen in this emergency department early yesterday morning for complaints of right knee pain. X-rays were completed and degenerative changes were found but no other acute abnormalities. She states upon waking this morning she now has pain in her right knee as well. She has not fallen or injured the knee in any way that she is aware of. She denies a history of knee pain, however states she does have chronic ankle pain and this has been bothering her as well. She called to make an appointment with orthopedist, Dr. Canales, however they cannot get her in until 27 October. She is on the wait list to get in earlier. She is been using [id number] Tylenol, as well as heat and ice with little relief. Bilateral Knee Pain Score (Numeric/FACES): 8 - Related Data Allergies Allergy/AdvReac Type Severity Reaction Status Date / Time codeine Allergy Severe Rash Verified 10/14/19 16:46 Home Meds: Home Meds Albuterol [Ventolin HFA] 1 - 2 puff INH Q4H PRN 07/30/17 [History] Ascorbic Acid [Vitamin C] 1,000 mg PO DAILY 07/30/17 [History] Budesonide/Formoterol Fumarate [Symbicort 160-4.5 Mcg Inhaler] 2 puff INH BID 07/30/17 [History] Cromolyn Sodium 1 drop EYEBOTH BID 07/30/17 [History] Fluticasone Propionate [Flonase] 1 spray NASBOTH DAILY 07/30/17 [History] Furosemide [Lasix] 20 mg PO DAILY 07/30/17 [History] Garlic [Garlic Oil] 1,000 mg PO DAILY 07/30/17 [History] Loratadine [Claritin] 10 mg PO DAILY 07/30/17 [History] Montelukast [Singulair] 10 mg PO BEDTIME 07/30/17 [History] Vitamin B Complex [B Complex] 100 mg PO DAILY 07/30/17 [History] atorvaSTATin [Lipitor] 20 mg PO BEDTIME 07/30/17 [History] sitaGLIPtin Phos/Metformin HCl [Janumet 50-1,000 MG] 1 tab PO DAILY 07/30/17 [History] traZODone HCl [Trazodone HCl] 50 mg PO BEDTIME 07/30/17 [History] Ferrous Sulfate 200 mg PO DAILY 08/02/17 [History] Rivaroxaban [Xarelto] 20 mg PO ASDIRECTED #30 tablet 08/02/17 [Rx] dilTIAZem HCL [Cardizem Cd] 180 mg PO DAILY #30 cap.er.24h 08/02/17 [Rx] Aspirin [Aspir 81] 81 mg CHEW DAILY 10/13/19 [History] Calcium Carbonate/Vitamin D3 [Calcium 500-Vit D3 200 Tablet] 1 each PO DAILY 10/14/19 [History] Cyanocobalamin (Vitamin B-12) [Vitamin B-12] 1,000 mcg PO DAILY 10/14/19 [History] Non-Formulary Medication [NF Drug] 180 mg PO DAILY 10/14/19 [History] Sennosides/Docusate Sodium [Senna-Docusate Sodium Tablet] 2 tab PO BEDTIME 10/14/19 [History] methylPREDNISolone [Medrol Dose Pack] 4 mg PO ASDIRECTED #1 dospk 10/14/19 [Rx] polyethylene glycoL 3350 [MiraLAX] 17 gm PO TID 10/14/19 [History] Past Medical History HEENT History: Reports: Allergic Rhinitis, Impaired Vision, Other (See Below) Other HEENT History: wears glasses, dentures Cardiovascular History: Reports: Afib, High Cholesterol, Hypertension Respiratory History: Reports: Asthma, Sleep Apnea Gastrointestinal History: Reports: Colon Polyp Other Gastrointestinal History: liver lesion Genitourinary History: Reports: Urinary Incontinence UNCLAIMED PROPERTY OFFICER History: Reports: Other (See Below) Other UNCLAIMED PROPERTY OFFICER History: abnormal pap Musculoskeletal History: Reports: None Neurological History: Reports: None Psychiatric History: Reports: None Other Psychiatric History: insomnia Endocrine/Metabolic History: Reports: Diabetes, Type II, Obesity/BMI 30+ Hematologic History: Reports: None Immunologic History: Reports: None Oncologic (Cancer) History: Reports: None Dermatologic History: Reports: None - Infectious Disease History Infectious Disease History: Reports: None - Past Surgical History HEENT Surgical History: Reports: Oral Surgery GI Surgical History: Reports: Bariatric Procedure, Cholecystectomy, Colonoscopy Neurological Surgical History: Reports: None Musculoskeletal Surgical History: Reports: Other (See Below) Other Musculoskeletal Surgeries/Procedures:: Left pinky finger surgery in 1979. Oncologic Surgical History: Reports: None Social & Family History - Tobacco Use Smoking Status *Q: Never Smoker - Caffeine Use Caffeine Use: Reports: Coffee - Recreational Drug Use Recreational Drug Use: No - Living Situation & Occupation Living situation: Reports: Single, Alone Occupation: Unemployed Review of Systems - Review of Systems Review Of Systems: See Below Constitutional: Reports: No Symptoms Eyes: Reports: No Symptoms Ears: Reports: No Symptoms Nose: Reports: No Symptoms Mouth/Throat: Reports: No Symptoms Respiratory: Reports: No Symptoms Cardiovascular: Reports: No Symptoms GI/Abdominal: Reports: No Symptoms Genitourinary: Reports: No Symptoms Musculoskeletal: Reports: Other (bilateral knee and ankle pain) Skin: Reports: No Symptoms Neurological: Reports: No Symptoms Psychiatric: Reports: No Symptoms ED EXAM, GENERAL - Physical Exam Exam: See Below General Appearance: Alert, WD/WN, No Apparent Distress Respiratory/Chest: No Respiratory Distress, Lungs Clear, Normal Breath Sounds, No Accessory Muscle Use, Chest Non-Tender Cardiovascular: Normal Peripheral Pulses, Regular Rate, Rhythm, No Edema, No Gallop, No JVD, No Murmur, No Rub Extremities: Other (tenderness to palpation throughout bilateral knees. No redness, warmth, or edema present.) Neurological: Alert, Oriented, CN II-XII Intact, Normal Cognition, Normal Gait, Normal Reflexes, No Motor/Sensory Deficits Psychiatric: Normal Affect Course - Vital Signs Last Recorded V/S: Last Vital Signs Temp 96.1 F L 10/14/19 16:44 Pulse 66 10/14/19 16:44 Resp 16 10/14/19 16:44 BP 121/58 L 10/14/19 16:44 Pulse Ox 99 10/14/19 16:44 - Re-Assessments/Exams Free Text/Narrative Re-Assessment/Exam: 10/14/19 18:09 X-ray of the left knee show degenerative changes but no acute abnormalities. This is similar to the x-ray of the right knee that was completed yesterday. Patient is on Xarelto, therefore NSAIDs would not be appropriate. We will do a Medrol dose pack. Discussed with her that since she cannot get in with Dr. Canales until 27 October, I would recommend that she follow-up with her primary care provider for ongoing management of her knee pain. Return to the ER as needed. Departure - Departure Time of Disposition: 18:09 Disposition: Home, Self-Care 01 Condition: Good Clinical Impression: Knee pain, bilateral Qualifiers: Chronicity: acute Qualified Code(s): M25.561 - Pain in right knee - Discharge Information *PRESCRIPTION DRUG MONITORING PROGRAM REVIEWED*: No *COPY OF PRESCRIPTION DRUG MONITORING REPORT IN PATIENT LYNN: No Prescriptions: methylPREDNISolone [Medrol Dose Pack] 4 mg PO ASDIRECTED #1 dospk Instructions: Acute Knee Pain, Adult Referrals: Minnie Morrison MD [Primary Care Provider] - Forms: ED Department Discharge Additional Instructions: You were seen in the emergency department today for bilateral knee pain. Xrays have been completed on both knees and do not show any new problems, but do show degenerative changes (arthritis). You have been prescribed a Medrol dose pack. Take this as prescribed. Be aware that you will likely see an increase in your blood sugars while on this medication, but they should return to normal once it is complete. You may continue to use over the counter Tylenol, heat, and ice for pain management. Since you can't get in to see Dr. Canales until October 27, I would recommend that you follow-up with your primary care provider at her next available appointment for ongoing management of your knee pain. Return to the ER as needed. Sepsis Event Note (ED) - Evaluation Sepsis Screening Result: No Definite Risk
--- NOTE | 2019-10-14 17:49 | CR ---
Left knee: 4 views of the left knee were obtained. Comparison: No prior left knee exam. Severe medial joint space narrowing is noted. Medial osteophytes are seen. Small osteophyte is noted off the lateral tibial margin. Bony structures are osteopenic. Degenerative spurring is noted within the patella. Dystrophic calcification is seen anteriorly within and below the knee. Impression: 1. Degenerative change. 2. Nothing acute is appreciated on the left knee exam. Diagnostic code #2 This report was dictated in MDT
== END 2019-10-14 18:45 | disposition home or self-care (01) ==
LOC: JD.ED 16:23
DX: M25.561 Pain in right knee (principal); M25.562 Pain in left knee; I10 Essential (primary) hypertension; E78.00 Pure hypercholesterolemia, unspecified; I48.91 Unspecified atrial fibrillation; E11.9 Type 2 diabetes mellitus without complications; E66.9 Obesity, unspecified; J45.909 Unspecified asthma, uncomplicated; Z88.5 Allergy status to narcotic agent; Z79.82 Long term (current) use of aspirin; Z79.899 Other long term (current) drug therapy; Z90.49 Acquired absence of other specified parts of digestive tract; Z98.890 Other specified postprocedural states
CPT/HCPCS: 73564-26-LT; 73564-LT; 99283

== ENCOUNTER 2020-01-19 10:38 | Day surgery (SDC) | payer MEDICARE, MEDICAID ==
[~2020-01-19 10:38] MED LIST changes: -Acetaminophen/HYDROcodone 325-5 MG Tab PO ONE; -Dexamethasone 4 MG/ML SDV ONE; -HYDROmorphone 0.5 MG/0.5 ML Syringe ONE; -Ketorolac 30 MG/ML SDV ONE; -Lactated Ringers 1,000 ML ONE; -Lidocaine 1% 4 ML ONE; -Meperidine PF 50 MG/ML Syringe IVPUSH PRN; -Midazolam 1 MG/ML 2 ML SDV ONE; -Ondansetron 4 MG/2 ML SDV IVPUSH PRN; -Ondansetron 4 MG/2 ML SDV ONE; -Propofol 200 MG/20 ML SDV ONE; -Rocuronium 50 MG/5 ML Vial ONE; -ceFAZolin 1 GM Vial ONE; -diphenhydrAMINE 50 MG/ML SDV IVPUSH PRN; -fentaNYL 100 MCG/2 ML SDV IVPUSH PRN; -fentaNYL 250 MCG/5 ML SDV ONE
--- NOTE | 2020-01-19 11:38 | PCM.PREANE ---
Preanesthetic Assessment - Procedure Proposed Procedure: EGD/Colonoscopy - Anesthesia/Transfusion/Family Hx Anesthesia History: Prior Anesthesia Without Reaction Family History of Anesthesia Reaction: No Transfusion History: No Prior Transfusion(s) Intubation History: Unknown - Review of Systems General: No Symptoms Pulmonary: No Symptoms (Mild Asthma, has an inhaler if needed. ), Other (Sleep Apnea, stopped using CPAP in 2014. ) Cardiovascular: Dyspnea on Exertion (4 MET capacity, does get short of breath with more activity. 2018 epidose of A fib, EKG SR at 60 bpm.) Gastrointestinal: No Symptoms (History of Gastric Bypass) Neurological: No Symptoms Other: Reports: None (Morbid Obesity BMI 44), Easy Bruising (On xarelto, last dose was 01/16/20), Diabetes (Type II, oral agent for control. Blood glucose 99 mg/dl this . ) - Physical Assessment NPO Status Date: 01/18/20 NPO Status Time: 20:30 Vital Signs: Last Vital Signs Temp 36.7 C 01/19/20 10:50 Pulse 56 L 01/19/20 10:50 Resp 20 01/19/20 10:50 BP 148/62 H 01/19/20 10:50 Pulse Ox 98 01/19/20 10:50 Height: 1.55 m Weight: 106.141 kg ASA Class: 3 Mental Status: Alert & Oriented x3 Airway Class: Mallampati = 2 Dentition: Reports: Normal Dentition Thyro-Mental Finger Breadths: 3 Mouth Opening Finger Breadths: 3 ROM/Head Extension: Full Lungs: Clear to Auscultation, Normal Respiratory Effort Cardiovascular: Regular Rate, Regular Rhythm - Allergies Allergies/Adverse Reactions: Allergies Allergy/AdvReac Type Severity Reaction Status Date / Time codeine Allergy Severe Rash Verified 01/18/20 08:59 - Acknowledgements Anesthesia Type Planned: MAC Pt an Appropriate Candidate for the Planned Anesthesia: Yes Alternatives and Risks of Anesthesia Discussed w Pt/Guardian: Yes Pt/Guardian Understands and Agrees with Anesthesia Plan: Yes PreAnesthesia Questionnaire HEENT History: Reports: Allergic Rhinitis, Impaired Vision, Other (See Below) Other HEENT History: wears glasses, dentures Cardiovascular History: Reports: Afib, High Cholesterol, Hypertension Respiratory History: Reports: Asthma, Sleep Apnea Gastrointestinal History: Reports: Colon Polyp Other Gastrointestinal History: liver lesion Genitourinary History: Reports: Urinary Incontinence CLIENT SUPPORT CONSULTANT History: Reports: Other (See Below) Other OB/BYN History: abnormal pap Musculoskeletal History: Reports: None Neurological History: Reports: None Psychiatric History: Other Psychiatric History: insomnia Endocrine/Metabolic History: Reports: Diabetes, Type II, Obesity/BMI 30+ Hematologic History: Reports: Iron Deficiency Immunologic History: Reports: None Oncologic (Cancer) History: Reports: None Dermatologic History: Reports: None - Infectious Disease History Infectious Disease History: Reports: None - Past Surgical History Head Surgeries/Procedures: Reports: None HEENT Surgical History: Reports: Oral Surgery Respiratory Surgical History: Reports: None GI Surgical History: Reports: Bariatric Procedure, Cholecystectomy, Colonoscopy Other GI Surgeries/Procedures: bladder surgery Female Surgical History: Reports: Other (See Below) Other Female Surgeries/Procedures: colposcopy Male Surgical History: Reports: None Endocrine Surgical History: Reports: None Neurological Surgical History: Reports: None Musculoskeletal Surgical History: Reports: Other (See Below) Other Musculoskeletal Surgeries/Procedures:: Left pinky finger surgery in 1979. Oncologic Surgical History: Reports: None - SUBSTANCE USE Tobacco Use Status *Q: Former Tobacco User Recreational Drug Use History: No - HOME MEDS Home Medications: Home Meds Albuterol [Ventolin HFA] 1 - 2 puff INH Q4H PRN 07/30/17 [History] Ascorbic Acid [Vitamin C] 1,000 mg PO DAILY 07/30/17 [History] Budesonide/Formoterol Fumarate [Symbicort 160-4.5 Mcg Inhaler] 2 puff INH BID 07/30/17 [History] Cromolyn Sodium 1 drop EYEBOTH BID 07/30/17 [History] Fluticasone Propionate [Flonase] 1 spray NASBOTH BID 07/30/17 [History] Furosemide [Lasix] 20 mg PO DAILY 07/30/17 [History] Garlic [Garlic Oil] 1,000 mg PO DAILY 07/30/17 [History] Loratadine [Claritin] 10 mg PO DAILY 07/30/17 [History] Montelukast [Singulair] 10 mg PO BEDTIME 07/30/17 [History] Vitamin B Complex [B Complex] 100 mg PO DAILY 07/30/17 [History] atorvaSTATin [Lipitor] 20 mg PO BEDTIME 07/30/17 [History] sitaGLIPtin Phos/Metformin HCl [Janumet 50-1,000 MG] 1 tab PO BID 07/30/17 [H istory] traZODone HCl [Trazodone HCl] 50 mg PO BEDTIME 07/30/17 [History] Ferrous Sulfate 325 mg PO DAILY 08/02/17 [History] dilTIAZem HCL [Cardizem Cd] 180 mg PO DAILY #30 cap.er.24h 08/02/17 [Rx] Aspirin [Aspir 81] 81 mg CHEW DAILY 10/13/19 [History] Calcium Carbonate/Vitamin D3 [Calcium 500-Vit D3 200 Tablet] 1 each PO DAILY 10/14/19 [History] Cyanocobalamin (Vitamin B-12) [Vitamin B-12] 1,000 mcg PO DAILY 10/14/19 [History] Sennosides/Docusate Sodium [Senna-Docusate Sodium Tablet] 2 tab PO Q48H 10/14/19 [History] polyethylene glycoL 3350 [MiraLAX] 17 gm PO DAILY PRN 10/14/19 [History] Baclofen 10 mg PO TID PRN 01/18/20 [History] Cholecalciferol (Vitamin D3) [Vitamin D3] 1,000 unit PO DAILY 01/18/20 [History] Rivaroxaban [Xarelto] 20 mg PO BEDTIME 01/18/20 [History] glipiZIDE [Glipizide ER] 2.5 mg PO DAILY 01/18/20 [History] - CURRENT (IN HOUSE) MEDS Current Meds: Current Medications Lactated Ringer's (Ringers, Lactated) 1,000 mls @ 125 mls/hr IV ASDIRECTED ABRAN Stop: 01/19/20 23:00 Last Admin: 01/19/20 11:10 Dose: 125 mls/hr Documented by: Lidocaine/Sodium Bicarbonate (Buffered Lidocaine 1% In Ns 8.4%) 0.25 ml IDERM ONETIME PRN PRN Reason: Prior to IV Start Stop: 01/19/20 18:00 Sodium Chloride (Saline Flush) 10 ml FLUSH ASDIRECTED PRN PRN Reason: Keep Vein Open Stop: 01/19/20 18:00
[2020-01-19] MEDS ORDERED: Propofol 200 MG/20 ML SDV ONE (13:46)
[2020-01-19] MEDS ORDERED: Midazolam 1 MG/ML 2 ML SDV ONE (13:46)
[2020-01-19] MEDS ORDERED: fentaNYL 100 MCG/2 ML SDV ONE (13:46)
--- NOTE | 2020-01-19 14:43 | PCM48HPAN ---
Post Anesthesia Note - EVALUATION WITHIN 48HRS OF ANESTHETIC Vital Signs in Normal Range: Yes Patient Participated in Evaluation: Yes Respiratory Function Stable: Yes Airway Patent: Yes Cardiovascular Function Stable: Yes Hydration Status Stable: Yes Pain Control Satisfactory: Yes Nausea and Vomiting Control Satisfactory: Yes Mental Status Recovered: Yes Vital Signs: Last Vital Signs Temp 36.7 C 01/19/20 10:50 Pulse 56 L 01/19/20 10:50 Resp 20 01/19/20 10:50 BP 148/62 H 01/19/20 10:50 Pulse Ox 98 01/19/20 10:50
--- NOTE | 2020-01-19 18:03 | PROC ---
DATE OF OPERATION: 01/19/2020 SURGEON: Kiana Valenzuela MD PREOPERATIVE DIAGNOSIS: Unexplained anemia. POSTOPERATIVE DIAGNOSIS: Unexplained anemia. PROCEDURES: 1. Esophagogastroduodenoscopy. 2. Colonoscopy. ESTIMATED BLOOD LOSS: Minimal. COMPLICATIONS: None. INDICATION AND CONSENT: The patient is a 59-year-old female who had prior history of gastric bypass. The patient has been anemic for several months now. Source of anemia is unknown. The patient is already on iron supplements. She was referred to me for evaluation. I discussed with the patient. She denies any pain. She denies any melena or any blood in stool. Therefore, we got a guaiac test, which was positive. Therefore, I recommended to proceed with the EGD and colonoscopy to make sure there is no obvious source of bleed. We discussed risks, benefits, and alternatives with the patient and informed consent was obtained. DETAILS OF PROCEDURE: The patient was taken to the procedure room, placed in left lateral decubitus position. Monitored anesthesia was induced. Time-out was performed and procedure was started. We began with an EGD. Scope was placed into the mouth, into the esophagus. Esophagus was normal. Went to the GE junction, it was normal and regular. There were no signs of esophagitis. Into the pouch. Pouch about 5 cm, appeared normal. In the lateral mid portion of the pouch, there was an area that appeared hypertrophic. Next to it, there was a suture. Therefore, this is likely a suture granuloma. Biopsy was taken. Gastrojejunostomy was normal, intact, open without an inflammation or ulceration. The blind pouch was also normal. The jejunum was normal. We were not able to get to the jejunojejunostomy anastomosis or to the hepatobiliary limb. At this point, the air was suctioned out and this EGD was concluded. We turned our attention to the colonoscopy. Perianal and digital rectal exams were normal. The scope was inserted and taken all the way to the cecum. Ileocecal valve as well as appendiceal orifice were photographed. There was thick mucus in the cecum. This was irrigated and suctioned out. No abnormalities were found in the ascending colon and transverse colon. In the descending and sigmoid colon, there was significant amount of mucousy stool. Attempt was made to irrigate this area, but the mucus was too sticky to be removed from the colonic mucosa. Therefore, incomplete examination was done here. About 70% of the mucosa was examined. In the examined mucosa, there were no polyps or any other sources of bleeding. Retroflexion in the rectum was normal. At this point, air was suctioned out from the colon and exam was concluded. Therefore, based on this exam and examined parts of the colon, there was no obvious source of bleeding. If the patient's anemia worsens, I would recommend capsule endoscopy or further imaging such as red tagged blood cell scan to further ascertain source of continued bleeding. Otherwise, the patient can return home and continue medical management and watchful waiting. This plan was discussed with the patient. MMODAL /[id number]
== END 2020-01-19 15:30 | disposition home or self-care (01) ==
LOC: JD.SDS 10:38
PROVIDERS: ATTEND Surgery
DX: D50.9 Iron deficiency anemia, unspecified (principal); K29.50 Unspecified chronic gastritis without bleeding; K31.89 Other diseases of stomach and duodenum; I10 Essential (primary) hypertension; E11.9 Type 2 diabetes mellitus without complications; E78.5 Hyperlipidemia, unspecified; G47.30 Sleep apnea, unspecified; E66.9 Obesity, unspecified; I48.91 Unspecified atrial fibrillation; E78.00 Pure hypercholesterolemia, unspecified; Z98.890 Other specified postprocedural states; Z79.899 Other long term (current) drug therapy; Z79.84 Long term (current) use of oral hypoglycemic drugs; Z88.5 Allergy status to narcotic agent; Z87.891 Personal history of nicotine dependence; Z68.42 Body mass index [BMI] 45.0-49.9, adult
CPT/HCPCS: 43239; 45378; J2250; J2704; J3010; J7120; 00813

== ENCOUNTER 2020-04-26 08:11 | Day surgery (SDC) | payer MEDICARE, MEDICAID ==
--- NOTE | 2020-04-26 09:17 | PCM.PREANE ---
Preanesthetic Assessment - Procedure Proposed Procedure: colonoscopy - Anesthesia/Transfusion/Family Hx Anesthesia History: Prior Anesthesia Without Reaction Family History of Anesthesia Reaction: No Transfusion History: No Prior Transfusion(s) Intubation History: Unknown - Review of Systems General: No Symptoms Pulmonary: No Symptoms Cardiovascular: No Symptoms Gastrointestinal: No Symptoms Neurological: No Symptoms Other: Reports: Diabetes, Sinus Problem (allergies) - Physical Assessment NPO Status Date: 04/25/20 NPO Status Time: 20:00 Vital Signs: Last Vital Signs Temp 97.0 F 04/26/20 08:51 Pulse 52 L 04/26/20 08:51 Resp 20 04/26/20 08:51 BP 133/53 L 04/26/20 08:51 Pulse Ox 96 04/26/20 08:51 Height: 5 ft 1 in Weight: 108.6 kg ASA Class: 2 Mental Status: Alert & Oriented x3 Airway Class: Mallampati = 1 Dentition: Reports: Dentures (top and bottom) Thyro-Mental Finger Breadths: 3 Mouth Opening Finger Breadths: 3 ROM/Head Extension: Full Lungs: Clear to Auscultation, Normal Respiratory Effort Cardiovascular: Regular Rate, Regular Rhythm - Allergies Allergies/Adverse Reactions: Allergies Allergy/AdvReac Type Severity Reaction Status Date / Time codeine Allergy Intermediate Rash Verified 04/26/20 08:48 - Blood Blood Available: No - Acknowledgements Anesthesia Type Planned: MAC Pt an Appropriate Candidate for the Planned Anesthesia: Yes Alternatives and Risks of Anesthesia Discussed w Pt/Guardian: Yes Pt/Guardian Understands and Agrees with Anesthesia Plan: Yes PreAnesthesia Questionnaire HEENT History: Reports: Allergic Rhinitis, Impaired Vision, Other (See Below) Other HEENT History: wears glasses, dentures Cardiovascular History: Reports: Afib, High Cholesterol, Hypertension Respiratory History: Reports: Asthma, Sleep Apnea Gastrointestinal History: Reports: Colon Polyp Other Gastrointestinal History: liver lesion Genitourinary History: Reports: Urinary Incontinence [employer] History: Reports: Other (See Below) Other OB/BYN History: abnormal pap Musculoskeletal History: Reports: None Neurological History: Reports: None Psychiatric History: Reports: Other (See Below) Other Psychiatric History: insomnia Endocrine/Metabolic History: Reports: Diabetes, Type II, Obesity/BMI 30+ Hematologic History: Reports: None Immunologic History: Reports: None Oncologic (Cancer) History: Reports: None Dermatologic History: Reports: None - Infectious Disease History Infectious Disease History: Reports: None - Past Surgical History Head Surgeries/Procedures: Reports: None HEENT Surgical History: Reports: Oral Surgery Cardiovascular Surgical History: Reports: None Respiratory Surgical History: Reports: None GI Surgical History: Reports: Bariatric Procedure, Cholecystectomy, Colonoscopy Other GI Surgeries/Procedures: bladder surgery Female Surgical History: Reports: None Other Female Surgeries/Procedures: colposcopy Male Surgical History: Reports: None Endocrine Surgical History: Reports: None Neurological Surgical History: Reports: None Musculoskeletal Surgical History: Reports: Other (See Below) Other Musculoskeletal Surgeries/Procedures:: Left pinky finger surgery in 1979. Oncologic Surgical History: Reports: None - SUBSTANCE USE Tobacco Use Status *Q: Former Tobacco User (quit 2011) Tobacco Use Within Last Twelve Months: No Second Hand Smoke Exposure: Yes Days Per Week of Alcohol Use: 0 Recreational Drug Use History: No - HOME MEDS Home Medications: Home Meds Albuterol [Ventolin HFA] 1 - 2 puff INH Q4H PRN 07/30/17 [History] Ascorbic Acid [Vitamin C] 1,000 mg PO DAILY 07/30/17 [History] Budesonide/Formoterol Fumarate [Symbicort 160-4.5 Mcg Inhaler] 2 puff INH BID 07/30/17 [History] Cromolyn Sodium 1 drop EYEBOTH BID 07/30/17 [History] Fluticasone Propionate [Flonase] 1 spray NASBOTH BID 07/30/17 [History] Furosemide [Lasix] 20 mg PO DAILY 07/30/17 [History] Garlic [Garlic Oil] 1,000 mg PO DAILY 07/30/17 [History] Loratadine [Claritin] 10 mg PO DAILY 07/30/17 [History] Montelukast [Singulair] 10 mg PO BEDTIME 07/30/17 [History] Vitamin B Complex [B Complex] 100 mg PO DAILY 07/30/17 [History] atorvaSTATin [Lipitor] 20 mg PO BEDTIME 07/30/17 [History] sitaGLIPtin Phos/Metformin HCl [Janumet 50-1,000 MG] 1 tab PO BID 07/30/17 [History] traZODone HCl [Trazodone HCl] 50 mg PO BEDTIME 07/30/17 [History] Ferrous Sulfate 325 mg PO DAILY 08/02/17 [History] dilTIAZem HCL [Cardizem Cd] 180 mg PO DAILY #30 cap.er.24h 08/02/17 [Rx] Aspirin [Aspir 81] 81 mg CHEW DAILY 10/13/19 [History] Calcium Carbonate/Vitamin D3 [Calcium 500-Vit D3 200 Tablet] 1 each PO DAILY 10/14/19 [History] Cyanocobalamin (Vitamin B-12) [Vitamin B-12] 1,000 mcg PO DAILY 10/14/19 [History] Sennosides/Docusate Sodium [Senna-Docusate Sodium Tablet] 2 tab PO Q48H 10/14/19 [History] polyethylene glycoL 3350 [MiraLAX] 17 gm PO DAILY PRN 10/14/19 [History] Cholecalciferol (Vitamin D3) [Vitamin D3] 1,000 unit PO DAILY 01/18/20 [History] Rivaroxaban [Xarelto] 20 mg PO BEDTIME 01/18/20 [History] glipiZIDE [Glipizide ER] 2.5 mg PO DAILY 01/18/20 [History] Apotex 1 dose PO DAILY 04/23/20 [History] Omeprazole Magnesium [Prilosec Otc] 20 mg PO DAILY 04/23/20 [History] lisinopriL [Lisinopril] 2.5 mg PO DAILY 04/23/20 [History] - CURRENT (IN HOUSE) MEDS Current Meds: Current Medications Lactated Ringer's (Ringers, Lactated) 1,000 mls @ 125 mls/hr IV ASDIRECTED ABRAN Stop: 04/26/20 23:00 Last Admin: 04/26/20 08:45 Dose: 125 mls/hr Documented by: Lidocaine/Sodium Bicarbonate (Buffered Lidocaine 1% In Ns 8.4%) 0.25 ml IDERM ONETIME PRN PRN Reason: Prior to IV Start Stop: 04/26/20 18:00 Last Admin: 04/26/20 08:45 Dose: 0.25 ml Documented by: Sodium Chloride (Saline Flush) 10 ml FLUSH ASDIRECTED PRN PRN Reason: Keep Vein Open Stop: 04/26/20 18:00
[2020-04-26] MEDS ORDERED: Propofol 200 MG/20 ML SDV ONE ×2 (09:40→09:41)
--- NOTE | 2020-04-26 10:28 | PCM48HPAN ---
Post Anesthesia Note - EVALUATION WITHIN 48HRS OF ANESTHETIC Vital Signs in Normal Range: Yes Patient Participated in Evaluation: Yes Respiratory Function Stable: Yes Airway Patent: Yes Cardiovascular Function Stable: Yes Hydration Status Stable: Yes Pain Control Satisfactory: Yes Nausea and Vomiting Control Satisfactory: Yes Mental Status Recovered: Yes Vital Signs: Last Vital Signs Temp 36.1 C 04/26/20 08:51 Pulse 52 L 04/26/20 08:51 Resp 20 04/26/20 08:51 BP 133/53 L 04/26/20 08:51 Pulse Ox 96 04/26/20 08:51
--- NOTE | 2020-04-26 21:23 | PROC ---
DATE OF OPERATION: SURGEON: Kiana Valenzuela MD PREOPERATIVE DIAGNOSIS: Gastrointestinal bleeding. POSTOPERATIVE DIAGNOSIS: Normal colon. PROCEDURE: Colonoscopy. ANESTHESIA: Monitored anesthesia care. ESTIMATED BLOOD LOSS: None. INDICATIONS AND CONSENT: Ms. Barker is a 59-year-old female with prior history of Long-en-Y gastric bypass surgery who had anemia with a positive Hemoccult blood. The patient underwent EGD and colonoscopy in the past, January last year. EGD did show some gastritis. Colonoscopy was unable to completed because of poor prep. Therefore, arrangements were made for a repeat colonoscopy for which the patient is here today. Again, risks, benefits, and alternatives were discussed. Informed consent was obtained. DETAILS OF PROCEDURE: The patient was taken to the procedure room and placed in left lateral decubitus position. Monitored anesthesia care was induced. We began with perianal exam. There were skin tags. Digital rectal exam was normal. Scope was inserted and taken all the way to the cecum. Ileocecal valve and appendiceal orifice were photographed. Prep was good. Then, we began withdrawing and examining the entirety of the colonic mucosa. Ascending colon was normal. Hepatic flexure and transverse colons were normal. Splenic flexure was also normal. Descending, sigmoid, and rectum did not reveal any abnormalities on this exam. There was some degree of difficulty retaining the adequate amount of air to be able to examine the colon very well. However, pressure was placed in the anal opening to distend the colon adequately to complete the exam. Reported above, we did not see any evidence of polyps or any other abnormalities. On retroflexion, there were no significant internal hemorrhoids. At this point, air was suctioned out and scope was withdrawn. My recommendation for this patient is to repeat colonoscopy in 5 years due to some difficulty in distending the colon all the way for the exam. The patient will be allowed to return home. Follow up with primary care provider as prior routine. MMODAL /[id number] MTDGloria
== END 2020-04-26 11:36 | disposition home or self-care (01) ==
LOC: JD.SDS 08:11
PROVIDERS: ATTEND Surgery
DX: K92.2 Gastrointestinal hemorrhage, unspecified (principal); D50.9 Iron deficiency anemia, unspecified; I10 Essential (primary) hypertension; J45.909 Unspecified asthma, uncomplicated; E11.9 Type 2 diabetes mellitus without complications; E78.5 Hyperlipidemia, unspecified; G47.30 Sleep apnea, unspecified; E66.01 Morbid (severe) obesity due to excess calories; I48.91 Unspecified atrial fibrillation; Z90.49 Acquired absence of other specified parts of digestive tract; Z01.812 Encounter for preprocedural laboratory examination; Z20.822 Contact with and (suspected) exposure to COVID-19; Z98.890 Other specified postprocedural states; Z79.84 Long term (current) use of oral hypoglycemic drugs; Z98.84 Bariatric surgery status; Z98.0 Intestinal bypass and anastomosis status; Z79.82 Long term (current) use of aspirin; Z88.5 Allergy status to narcotic agent; Z87.891 Personal history of nicotine dependence; Z79.01 Long term (current) use of anticoagulants; Z68.42 Body mass index [BMI] 45.0-49.9, adult
CPT/HCPCS: 45378; J2704; J7120; U0002; 00811

== ENCOUNTER 2022-10-19 00:37 | Emergency (ER) | payer MEDICARE, MEDICAID ==
[2022-10-19] MEDS ORDERED: Cyclobenzaprine 10 MG Tab PO ONE (00:51)
[2022-10-19] MEDS ORDERED: Acetaminophen/HYDROcodone 325-5 MG Tab PO ONE (00:52)
== END 2022-10-19 01:20 | disposition home or self-care (01) ==
LOC: JD.ED 00:37
DX: G89.29 Other chronic pain (principal); M54.50 Low back pain, unspecified; I48.91 Unspecified atrial fibrillation; E78.00 Pure hypercholesterolemia, unspecified; I10 Essential (primary) hypertension; J45.909 Unspecified asthma, uncomplicated; E11.9 Type 2 diabetes mellitus without complications; E66.9 Obesity, unspecified; Z88.5 Allergy status to narcotic agent; Z79.82 Long term (current) use of aspirin; Z79.51 Long term (current) use of inhaled steroids; Z79.899 Other long term (current) drug therapy; Z79.4 Long term (current) use of insulin; Z87.891 Personal history of nicotine dependence; Z68.41 Body mass index [BMI] 40.0-44.9, adult
CPT/HCPCS: 99283; A9270

== ENCOUNTER 2023-09-29 18:36 | Emergency (ER) | payer MEDICARE, MEDICAID ==
[2023-09-29] MEDS: Ketorolac 30 MG/ML SDV IM ONE (19:59)
[2023-09-29 20:04] LABS: BASOPHILS PERCENT AUTO 0.3 % (0.0-1.0); EOSINOPHILS PERCENT AUTO 0.2 % (0.0-6.0); HEMATOCRIT 34.1 % (37.0-47.0); HEMOGLOBIN 10.7 gm/dl (12.0-16.0); IMMATURE GRAN ABSOLUTE AUTO 0.05 K/mm3 (0.00-0.05); IMMATURE GRAN PERCENT AUTO 0.4 % (0.0-0.4); LYMPHOCYTES ABSOLUTE AUTO 1.1 K/mm3 (1.0-4.8); LYMPHOCYTES PERCENT AUTO 9.7 % (24.0-44.0); MEAN CORPUSCULAR HEMOGLOBIN 27.1 pg (28.0-32.0); MEAN CORPUSCULAR HGB CONC 31.4 g/dl (32.0-36.0); MEAN CORPUSCULAR VOLUME 86.3 fl (83.0-99.0); MEAN PLATELET VOLUME 9.8 fl (9.4-12.3); MONOCYTES ABSOLUTE AUTO 0.7 K/mm3 (0.0-0.8); NEUTROPHILS ABSOLUTE AUTO 9.7 K/mm3 (1.8-7.7); NEUTROPHILS PERCENT AUTO 83.4 % (41.0-71.0); PLATELET COUNT,PLT 280 K/mm3 (150-400); RED BLOOD CELL COUNT 3.95 M/mm3 (4.10-5.30); WHITE BLOOD CELL COUNT,WBC 11.59 K/mm3 (3.9-11.3)
[2023-09-29 20:32] LABS: A/G RATIO 0.9 (1-2); ALBUMIN 2.9 g/dl (3.4-5.0); ANION GAP 13.7 (5-15); BILIRUBIN TOTAL 0.5 mg/dL (0.2-1.0); BUN/CREATININE RATIO 16.7 (14-18); CALCIUM 8.5 mg/dL (8.5-10.1); CREATININE 1.2 mg/dL (0.55-1.02); EST CRCL DRUG DOSING (CG) 41.97 mL/min; POTASSIUM,K 3.7 mEq/L (3.5-5.1)
== END 2023-09-29 21:45 | disposition home or self-care (01) ==
LOC: JD.ED 18:36
DX: M17.12 Unilateral primary osteoarthritis, left knee (principal); M76.32 Iliotibial band syndrome, left leg; I10 Essential (primary) hypertension; E78.00 Pure hypercholesterolemia, unspecified; J45.909 Unspecified asthma, uncomplicated; E66.9 Obesity, unspecified; Z68.37 Body mass index [BMI] 37.0-37.9, adult; Z87.891 Personal history of nicotine dependence; Z79.899 Other long term (current) drug therapy; Z79.84 Long term (current) use of oral hypoglycemic drugs; Z88.5 Allergy status to narcotic agent
CPT/HCPCS: 36415; 73564; 80053; 85025; 96372; 99283; J1885